=== PATIENT | female | born 1965 | race Caucasian/White ===

== ENCOUNTER 2020-05-21 13:36 | Inpatient (IN) | payer MEDICAID ==
[~2020-05-21] VITALS: Ht 167.6 cm; Wt 71.7 kg
--- NOTE | 2020-05-21 13:36 | NUR ---
BIBA TAKEN TO BED 10
[2020-05-21 13:37] VITALS: BP 126/81
--- NOTE | 2020-05-21 13:40 | NUR ---
55 Y/O FEMALE BIBA FROM [facility] FOR RIGHT PLEURAL EFFUSION. PT TRACH TO VENT WITH ALL VITALS STABLE. PATIENT BROUGHT IN FOR ADMISSION TO HOSPITAL. GCS OF 6 BASELINE. MEDHX: CEREBRAL PALSY, SEIZURE, DM, ANEMIA
[2020-05-21 14:17] VITALS: BP 140/78
--- NOTE | 2020-05-21 14:21 | NUR ---
LAB AT BEDSIDE
--- NOTE | 2020-05-21 14:30 | NUR ---
RAD AT BEDSIDE
[2020-05-21 14:45] LABS: BASOPHILS % (AUTO) 0.5 % (0.0-2.0); EOSINOPHILS # (AUTO) 0.3 K/uL (0-0.4); EOSINOPHILS % (AUTO) 3.8 % (0.0-4.0); HEMATOCRIT 38.5 % (36-48); HEMOGLOBIN 12.8 g/dL (12.0-16.0); LYMPHOCYTES # (AUTO) 1.7 K/uL (2.5-16.5); LYMPHOCYTES % (AUTO) 21.2 % (20.5-51.1); MEAN CORPUSCULAR HEMOGLOBIN 32 pg (27-31); MEAN CORPUSCULAR HGB CONC 33 g/dL (33-37); MEAN CORPUSCULAR VOLUME 95.3 fL (80-94); MONOCYTES # (AUTO) 0.7 K/uL (0.8-1.0); MONOCYTES % (AUTO) 8.7 % (1.7-9.3); NEUTROPHILS # (AUTO) 5.3 K/uL (1.8-7.7); NEUTROPHILS % (AUTO) 65.8 % (42.2-75.2); PLATELET COUNT (AUTO) 198 K/uL (140-450); RED BLOOD CELL COUNT(AUTO) 4.04 MIL/uL (4.20-5.40); RED CELL DISTRIBUTION WIDTH 14.8 % (11.6-13.7)
[2020-05-21 14:56] LABS: ALBUMIN 2.9 g/dL (3.4-5.0); CARBON DIOXIDE 32.6 mmol/L (21-32); CREATININE 0.4 mg/dL (0.6-1.3); POTASSIUM 3.6 mmol/L (3.5-5.1); TOTAL BILIRUBIN 0.3 mg/dL (0.0-1.0)
[2020-05-21] MEDS ORDERED: PHEN100C3 GT (14:59)
[2020-05-21] MEDS ORDERED: FERR75LI22 GT (14:59)
[2020-05-21] MEDS ORDERED: ATI.5 GT (14:59)
[2020-05-21] MEDS ORDERED: ESOM20EC GT (14:59)
[2020-05-21] MEDS ORDERED: ACET-8386 GT (14:59)
[2020-05-21] MEDS ORDERED: BISA-218 RC (14:59)
[2020-05-21] MEDS ORDERED: PRON INH (14:59)
[2020-05-21] MEDS ORDERED: ASCO500T95 GT (14:59)
[2020-05-21] MEDS ORDERED: POTA10TE30 GT (14:59)
[2020-05-21] MEDS ORDERED: GLYC15SO12 OP (14:59)
[2020-05-21] MEDS ORDERED: NA P133E RC (14:59)
[2020-05-21] MEDS ORDERED: INSU100S22 SUBQ (14:59)
[2020-05-21] MEDS ORDERED: CHLO473S62 MM (14:59)
[2020-05-21] MEDS ORDERED: MAGN400S60 GT (14:59)
[2020-05-21] MEDS ORDERED: SAW/1TAB GT (14:59)
[2020-05-21] MEDS ORDERED: FURO-570 GT (14:59)
[2020-05-21] MEDS ORDERED: MULT-2253 GT (14:59)
[2020-05-21 15:05] LABS: PROTHROMBIN TIME 10.2 secs (10.8-13.4)
[2020-05-21] MEDS ORDERED: LORazepam 2 MG/ML VIAL IM/IVP PRN (15:35)
[2020-05-21] MEDS ORDERED: ACETAMINOPHEN 325 MG TAB PO PRN (15:35)
[2020-05-21] MEDS ORDERED: ZOLPIDEM 5 MG TAB PO PRN (15:35)
[2020-05-21] MEDS ORDERED: MORPHINE SULFATE 2 MG/ML SYR IVP PRN (15:35)
[2020-05-21] MEDS ORDERED: DOCUSATE SODIUM 100 MG GELCAP PO PRN (15:35)
[2020-05-21] MEDS ORDERED: ONDANSETRON 4 MG/2 ML VIAL IM/IVP PRN (15:35)
[2020-05-21] MEDS ORDERED: HYDROcodone/APAP 5/325 MG 1 TAB TAB PO PRN (15:35)
[2020-05-21] MEDS ORDERED: POTASSIUM CHLORIDE 10 MEQ TABER PO PRN (15:40)
[2020-05-21] MEDS ORDERED: HYDROcodone/APAP 5/325 MG 1 TAB TAB GT PRN (15:40)
[2020-05-21] MEDS ORDERED: LORazepam 0.5 MG TAB GT PRN (15:40)
[2020-05-21] MEDS ORDERED: ALBUTEROL 0.083% 2.5 MG/3 ML NEBU INH PRN (15:40)
[2020-05-21] MEDS ORDERED: SODIUM PHOSPHATE 118 ML ENEM RC PRN (15:40)
[2020-05-21] MEDS ORDERED: bisacodyL 10 MG SUPP RC PRN (15:40)
[2020-05-21] MEDS ORDERED: MAGNESIUM HYDROXIDE 2400 MG/30 ML UDC GT PRN (15:40)
[2020-05-21] MEDS ORDERED: MAG SULF 2000 MG/WATER PREMIX 50 ML IV PRN (15:40)
--- NOTE | 2020-05-21 15:51 | NUR ---
PT CHANGED INTO CLEAN DIAPER, SKIN INTACT. POSITIONED FOR COMFORT AND TRACH SUCTIONED. BED LOCKED AND IN LOWEST POSITION. SIDE RAILS X2. HARDWOOD FLOOR FINISHER/PULSE OX IN PLACE.
--- NOTE | 2020-05-21 16:08 | NUR ---
REPORT GIVEN TO MARY FLORES VIA PHONE.
--- NOTE | 2020-05-21 16:20 | NUR ---
CALLED RT TO HELP TRANSPORT PT TO BED 127B, STATES SHE IS ON THE WAY
[2020-05-21 16:30] VITALS: BP 114/50
--- NOTE | 2020-05-21 16:30 | NUR ---
ADMITTED PT FROM ER WITH CC OF RIGHT LUNG PLEURAL EFFUSION. ON TRACH TO VENT WITH SETTING FF: TV 450, RATE 14, 30% FIO2. OBTAINED 98% O2 SAT. RHONCHI LUNG SOUND NOTED. NO SOB. PT ON GT FEEDING JEVITY 1.2 AT 60 ML/HR. NO RESIDUAL. SKIN INTACT. AFEBRILE. PIV G24 ON LEFT HAND INTACT. PT HAS NS IVF TO RUN AT 60 ML/HR. RIGHT ARM STIFF NOTED. PALPABLE PERIPHERAL PULSES TO DISTAL EXTREMITIES. NO CYANOSIS NOTED. PT OPENS EYES TO PAIN STIMULI. PT PLACED ON SEIZURE PRECAUTION. WILL CONTINUE TO MONITOR.
[2020-05-21 16:36] LABS: MAGNESIUM 2.1 mg/dL (1.8-2.4); PHOSPHORUS 3.2 mg/dL (2.5-4.9); THYROID STIMULATING HORMONE 1.53 uIU/mL (0.34-3.74)
--- NOTE | 2020-05-21 16:39 | NUR ---
Patient will be admitted to care of DR. JOHNSON. Admited to TELE. Will go to room 127A. Belongings list completed. Report to MARY FLORES.
[2020-05-21] MEDS: NACL 0.9% 1,000 ML IV SCH (16:45)
[2020-05-21] MEDS ORDERED: HYPROMELLOSE OP SCH (18:00)
[2020-05-21] MEDS ORDERED: GLYCERIN OP SCH (18:00)
[2020-05-21] MEDS ORDERED: PEG OP SCH (18:00)
--- NOTE | 2020-05-21 18:00 | NUR ---
PT IS RESTING, NO S/S OF DISCOMFORT. RENDERED PM CARE. TRACH SUCTIONING DONE. OBTAINED THICK SECRETIONS. NO S/S OF RESPIRATORY DISTRESS. TUBE FEEDING STARTED. PT TOLERATING WELL. NO ABDOMINAL DISTENTION NOTED. MRSA SCREEN SPECIMEN SENT. WILL ENDORSE NEXT SHIFT TO OBTAIN UA SPECIMEN. PT IS STABLE AT THIS TIME.
--- NOTE | 2020-05-21 19:15 | NUR ---
ENDORSED PT TO SHAREPOINT TRAINER RN FOR THE CONTINUITY OF CARE. POC REVIEWED AND DISCUSSED. PT IS STABLE . NO CHANGE OF CONDITION.
--- NOTE | 2020-05-21 19:50 | NUR ---
RECEIVED ENDORSEMENT FROM DAYSHIFT NURSE AT BEDSIDE FOR CONTINUITY OF CARE, PT IN STABLE CONDITION. PT IS IN BED P HOB UP 45% SHE IS AOX1 IS A TRACH TO VENT FI02 AT 30% RR AT 16 RESPIRATIONS EVEN AND UNLABORED. PT WITHDRAWS FROM LIGHT PAIN. HER SKIN IS INTACT, SHE HAS A 24G ON LEFT HAND RUNNING NORMAL SALINE AT 60 MLS/HR. SHE HAS A FEEDING TUBE RUNNING JEVITY 1.2 AT 60MLS/HR NO RESIDUAL NOTED. V/S FOLLOWS: T 97.2 P 79 R 16 BP 101/53 02 98% ON TRACH TO VENT SETTINGS. ALL FALLS PRECAUTIONS IN PLACE.
[2020-05-21 19:54] VITALS: BP 101/53
[2020-05-21 20:00] VITALS: BP 101/53
[2020-05-21] MEDS ORDERED: CRUSHER, PILL MC ONE (20:50)
[2020-05-21] MEDS ORDERED: LYC GT SCH (21:00)
[2020-05-21] MEDS ORDERED: CHLORHEXIDINE GLUCONATE MM SCH (21:00)
[2020-05-21] MEDS: INSULIN LANTUS 100 UNITS/ML 10 ML VIAL SUBQ SCH (21:00)
[2020-05-21] MEDS ORDERED: PYG GT SCH (21:00)
[2020-05-21] MEDS ORDERED: SOD SEL GT SCH (21:00)
[2020-05-21] MEDS ORDERED: BETA GT SCH (21:00)
[2020-05-21] MEDS ORDERED: VIT E GT SCH (21:00)
[2020-05-21] MEDS ORDERED: PHENYTOIN 100 MG CAPER PO SCH (21:00)
[2020-05-21] MEDS ORDERED: NON-FORMULARY ITEM (Insulin Glargine,Hum.rec.anlog (Lantus Solostar) 15 UNIT) SUBQ SCH (21:00)
[2020-05-21] MEDS ORDERED: SAW GT SCH (21:00)
--- NOTE | 2020-05-21 21:30 | NUR ---
PT GIVEN ORDERED DILANTIN VIA GT AND ORDERED HEPARIN SQ PLATELETS ARE 198. FINGERSTICK TAKEN AND IS 137. SPOKE WITH MD BY PHONE OK TO ORDER FINGERSTICKS, DM SLIDING SCALE AND STRAIGHT CATH DUE TO PT HAS PENDING UA. MD SAID OK TO HOLD 15 UNITS LANTUS DUE TO FINGERSTICK ONLY BEING 137. PT CONTINUES RUNNING JEVITY 1.2. EDUCATION REGARDING MEDICATION PROVIDED AT BEDSIDE, PT UNABLE TO VERBALIZE UNDERSTANDING. ALL ORDERED PRECAUTIONS IN PLACE.
--- NOTE | 2020-05-21 22:15 | NUR ---
PT TURNED, CHANGED AND REPOSITIONED IN BED. ALL ORDERED PRECAUTIONS IN PLACE.
[2020-05-22] VITALS (8 sets, daily range): BP systolic 57–157; BP diastolic 38–79
--- NOTE | 2020-05-22 | NUR ---
PT LYING IN BED EYES CLOSED, SHE IS RESPONSIVE TO LIGHT PAIN. PT IS TRACH TO VENT 02 99% WITH CURRENT VENT SETTINGS. JEVITY 1.2 CONTINUES AT 60MLS/HR. PT ASLO HAS 24 G IN LEFT HAND WHICH CONTINUES TO RUN NORMAL SALINE AT 60MLS/HR. OTHER V/S FOLLOWS: T 97.8 P 79 R 14 B/P 101/48 02 99% PT WAS TURNED, CHANGED AND REPOSITIONED IN BED ALL ORDERED PRECAUTIONS IN PLACE.
[2020-05-22] MEDS ORDERED: DEXTROSE 50% 50 ML SYR IVP PRN (01:55)
--- NOTE | 2020-05-22 02:00 | NUR ---
PT IN BED HOB UP 45% NORMAL SALINE RUNNING AT 60MLS/HR. JEVITY RUNNING AT 60MLS/HR. NO SEIZURE ACTIVITY NOTED THIS SHIFT. PT CONTINUES ON TRACH TO VENT WITH RESPIRATIONS EVEN AND UNLABORED 02 98-100% ON ALL ORDERED PRECAUTIONS IN PLACE. PT WAS TURNED CHANGED AND REPOSITIONED IN BED.
--- NOTE | 2020-05-22 04:35 | NUR ---
PT WAS TURNED, CHANGED AND REPOSITIONED IN BED. URINE FOR UA COLLECTED AND SENT TO LAB. ORAL CARE PROVIDED.
[2020-05-22 05:40] LABS: APPEARANCE,URINE CLEAR (CLEAR); BILIRUBIN,URINE NEGATIVE (NEGATIVE); BLOOD, URINE NEGATIVE (NEGATIVE); COLOR,URINE YELLOW (YELLOW); LEUKOCYTE ESTERASE ,URINE NEGATIVE (NEGATIVE); NITRITE, URINE NEGATIVE (NEGATIVE); UGLUCOSE NEGATIVE (NEGATIVE)
[2020-05-22 05:54] LABS: ANION GAP 7.8 (8-16); CARBON DIOXIDE 34.1 mmol/L (21-32); CREATININE 0.4 mg/dL (0.6-1.3); MAGNESIUM 2.1 mg/dL (1.8-2.4); PHOSPHORUS 3.9 mg/dL (2.5-4.9); POTASSIUM 3.9 mmol/L (3.5-5.1)
--- NOTE | 2020-05-22 06:00 | NUR ---
FINGERSTICK IS 171, 2 UNITS OF HUMALOG COVERAGE GIVEN. ORAL CARE PROVIDED. PT GIVEN ORDERED PREVACID FOR GERD. ALL ORDERED PRECAUTIONS IN PLACE.
[2020-05-22] MEDS: INSULIN LISPRO SLIDING SCALE 100 UNITS/ML VIAL SUBQ PRN ×2 (06:43→20:53)
[2020-05-22] MEDS: BLOOD GLUCOSE MONITORING 1 DEV DEV FS SCH ×4 (06:51→20:58)
[2020-05-22] MEDS: LANSOPRAZOLE 30 MG CAPDR GT SCH (06:51)
[2020-05-22 06:59] LABS: BASOPHILS # (AUTO) 0.1 K/uL (0.00-0.22); BASOPHILS % (AUTO) 1.1 % (0.0-2.0); MONOCYTES # (AUTO) 0.7 K/uL (0.8-1.0)
[2020-05-22 07:00] LABS: EOSINOPHILS # (AUTO) 0.3 K/uL (0-0.4); EOSINOPHILS % (AUTO) 4.6 % (0.0-4.0); HEMATOCRIT 37.3 % (36-48); HEMOGLOBIN 12.8 g/dL (12.0-16.0); LYMPHOCYTES # (AUTO) 1.4 K/uL (2.5-16.5); LYMPHOCYTES % (AUTO) 20.1 % (20.5-51.1); MEAN CORPUSCULAR HEMOGLOBIN 33 pg (27-31); MEAN CORPUSCULAR HGB CONC 34 g/dL (33-37); MEAN CORPUSCULAR VOLUME 96.2 fL (80-94); MONOCYTES % (AUTO) 9.4 % (1.7-9.3); NEUTROPHILS # (AUTO) 4.6 K/uL (1.8-7.7); NEUTROPHILS % (AUTO) 64.8 % (42.2-75.2); PLATELET COUNT (AUTO) 287 K/uL (140-450); RED BLOOD CELL COUNT(AUTO) 3.88 MIL/uL (4.20-5.40); WHITE BLOOD COUNT (AUTO) 7.1 K/uL (4.8-10.8)
[2020-05-22 07:30] LABS: CHOL/HDL RATIO 4.3 (1-4.5)
--- NOTE | 2020-05-22 07:35 | NUR ---
RECEIVED REPORT FROM CELL TENDER RN FOR CONTINUITY OF CARE, PATIENT RESTING IN BED, TRACH TO VENT, FIO2 30%. O2 SAT 99%. HR 76. G TUBE FEEDING WITH JEVITY@ 60ML/HR, WATER FLUSH 100 Q4H. IV TO LEFT HAND 24G INFUSING NS @ 60ML/HR. INCONTINENT TO BOWEL/BLADDER. HOB ELEVATED>35. SAFETY MEASURES IN PLACE, WILL CONTINUE TO MONITOR.
[2020-05-22] MEDS ORDERED: POTASSIUM CHLORIDE 10 MEQ TABER PO SCH (09:00)
[2020-05-22] MEDS ORDERED: FUROSEMIDE 40 MG TAB GT SCH (09:00)
[2020-05-22] MEDS: INSULIN LANTUS 100 UNITS/ML 10 ML VIAL SUBQ SCH ×2 (09:00→21:00)
[2020-05-22] MEDS ORDERED: ESOMEPRAZOLE MAGNESIUM 20 MG GT SCH (09:00)
[2020-05-22] MEDS ORDERED: ASCORBIC ACID 500 MG TAB GT SCH (09:00)
[2020-05-22] MEDS ORDERED: NON-FORMULARY ITEM (Multivitamin (Multi-Vitamin Daily) 1 TAB) GT SCH (09:00)
[2020-05-22] MEDS ORDERED: FERROUS SULFATE 300 MG GT SCH (09:00)
[2020-05-22] MEDS: MULTIVITAMIN 5 ML ORASYR GT SCH (09:00)
--- NOTE | 2020-05-22 09:04 | NUR ---
PATIENT HAS BEEN SCREENED AND CATEGORIZED HIGH NUTRITION RISK. PATIENT WILL BE SEEN WITHIN 1-2 DAYS OF ADMISSION. 05/22/20-05/23/[address]
[2020-05-22 10:06] LABS: T4 (THYROXINE) 6.6 ug/dL (4.5-12.0)
[2020-05-22] MEDS ORDERED: ASCORBIC ACID 500 MG/5 ML ORASYR GT SCH (10:15)
[2020-05-22] MEDS ORDERED: FUROSEMIDE 40 MG/5 ML ORAL SOL UDC GT SCH (10:15)
[2020-05-22] MEDS ORDERED: POTASSIUM CHLORIDE 20% 40 MEQ/15 ML UDC GT SCH (10:30)
[2020-05-22] MEDS: FERROUS SULFATE 300 MG/5 ML UDC GT SCH (10:48)
[2020-05-22] MEDS: LACTULOSE 20 GM/30 ML UDC PO SCH (10:50)
[2020-05-22] MEDS: PHENYTOIN 100 MG/4 ML UDC GT SCH (10:50)
--- NOTE | 2020-05-22 11:16 | NUR ---
DC [age] YRS OLD FEMALE PATIENT WAS ADMITTED FROM [facility] WITH A DX OF CHF, RT PLEURAL EFFUSION. PT HAS A HX OF CXR SHOWED RIGHT LOWER LOBE AND RIGHT MIDDLE LOBE ATELECTASIS . PT IS TRACH TO VENT, FIO2 30% SATING 98% . RAPID COVID TEST NEGATIVE CONTINUED ALL HOME MEDS. CONSULTED WITH PULMO DR MARINELLI. DC PLAN TO GO BACK TO [facility] WHEN STABLE CM TO FOLLOW Addendum: 05/25/20 at 1115 by Mansi Ramirez CM DC SUPERVISOR MAPPING: PATIENT WILL DC TODAY BACK TO [facility]. FAXED TO [facility]. PER ERIC AT [facility] PATIENT WILL GO TO ROOM 121-B UNDER DR. JOHNSON. Addendum: 05/25/20 at 1120 by Mansi Ramirez CM DC SUPERVISOR MAPPING: ARRANGED TRANSPORTATION WITH [facility] [phone]. INSPECTOR MACHINE CUT GLASS TIME FOR PATIENT IS 1:00 PM Addendum: 05/25/20 at 1123 by Mansi Ramirez CM JC PELAEZ: CATHIE RN Addendum: 05/25/20 at 1126 by Mansi Ramirez CM JC PELAEZ: [address] [address] [address] DR[address] JOHNSON
--- NOTE | 2020-05-22 11:43 | NUR ---
SOCIAL WORK NOTE: Patient's Orientation Unable To Assess Information Provided By EVELINA ELIZALDE - SISTER Comments SW WAS UNABLE TO MEET PATIENT AT BEDSIDE. SW COMPLETED ASSESSMENT WITH PATIENT'S SISTER. Gang Vibrator Operator, Realtionship and Phone Number EVELINA ELIZALDE SISTER [phone] MARIO BRITO SISTER [phone] Healthcare Power of Service Station Helper No Does Patient Have a POLST No Identifying Problems No Social Work Triggers Is A Social Work Consult Needed No Mandate Report Filed No Explanation Of Identifying Problems PATIENT IS A 55-YEAR-OLD FEMLAE ADMITTED FOR CHF AND RIGHT PLEURAL EFFUSION. PATIENT HAS PMHX OF CHF, CEREBRAL PALSY, DM-II, CHRONIC RESPIRATORY FAILURE W/ TRACH DEPENDENCE. Admitted From [facility] Home [facility] - [phone] Pre-Admission Level Of Functioning Status Total Care Level Of Functioning Comment SISTER STATED THAT PATIENT REQUIRES TOTAL ASSISTANCE WITH ADLS. Prior Resources/Services Used In Last 12 Months SNF Care Home Care Prior Resources/Service Comments PER SISTER, PATIENT IS A INTERMEDIATE PATIENT AND ON A BED HOLD. Dialysis Comments N/A Patient Had Caregiver No Home Support No Caregiver Issues Financial Issues No Known Financial Issue Referral To The Financial Counselor Needed No Factors/Needs No D/C Needs Identified Pt/Rep Participated In Discharge Plan Yes Patient/Family Agress With Discharge Plan Yes Discharge Plan Comments TENTATIVE DISCHARGE PLAN IS FOR PATIENT [place] [facility] [place] Status Initiated
[2020-05-22] MEDS: NACL 0.9% 1,000 ML IV SCH (12:24)
[2020-05-22] MEDS: POLYVINYL ALCOHOL 1.4% OP 15 ML SOL OP SCH ×2 (12:25→18:29)
--- NOTE | 2020-05-22 14:22 | NUR ---
05/22/20 RD INITIAL ASSESSMENT COMPLETED PLEASE REFER TO NUTRITION ASSESSMENT UNDER CARE ACTIVITY FOR ESTIMATED NUTRITIONAL NEEDS. 1. RECOMMEND JEVITY 1.2 @ 60 ML/HR. -THIS WILL PROVIDE 1440 ML VOLUME, 1728 KCAL AND 86 GM OF PROTEIN MEETING ADEQUATE NUTRIENT NEEDS 2. CONTINUE FREE WATER FLUSH OF 100 ML Q4H 3. HOLD FEEDINGS 2 HR BEFORE ADMINISTERING DILANTIN G-TUBE MEDICATION AND [address] TO FOLLOW-UP 2-3 DAYS, HIGH RISK ARACELI ROSS RD
--- NOTE | 2020-05-22 15:46 | NUR ---
DR. JOHNSON APPROVED INCREASING TUBE FEEDING TO 60 ML/HR OF JEVITY 1.2 ON THE DIET ORDER.
--- NOTE | 2020-05-22 19:13 | NUR ---
ENDORSED PATIENT TO CLINIC RECEPTIONIST RN FOR CONTINUITY OF CARE. PATIENT IN STABLE CONDITION.
--- NOTE | 2020-05-22 19:25 | NUR ---
PT RECEIVED ON PRVC 450 +5, f 14 30% W/ PORTEX 7 TRACH. ALARMS ON AND AUDIBLE, AMBU AT BEDSIDE AND VENT PLUGGED INTO RED OUTLET
--- NOTE | 2020-05-22 20:00 | NUR ---
RECEIVED REPORT FORM AM DAYSHIFT NURSE AT BEDSIDE FOR CONTINUITY OF CARE, PT IN STABLE CONDITION. PT IS IN BED AOX1 WITH HEAD OF BED UP. PT WITHDRAWS TO LIGHT PAIN. SHE IS A TRACH TO VENT WITH VENT SETTING FOLLOWS: 30% FI02 VT 450 R 14 02 96%. PT HAS A LEFT HAND 24 G RUNNING NORMAL SALINE AT 60MLS/HR. PT ALSO HAS A GT TUBE INTACT NO RESIDUAL NOTED. PT ON G TUBE FEEDING OF JEVITY 1.2 AT 60MLS/HR. V/S FOLLOWS: T 97 P 82 R 18 B/P 116/75 02 96% WITH ALL CURRENT VENT SETTINGS. ALL ORDERED PRECAUTIONS IN PLACE.
--- NOTE | 2020-05-22 20:48 | NUR ---
PT WAS TRANSPORTED FROM RM 127 TO RM 108 ON VENT. PT TOLERATED TRANSPORT WELL VENT PLUGGED INTO RED OUTLET AND AMBU AT BEDSIDE.
--- NOTE | 2020-05-22 21:00 | NUR ---
PT MOVED FROM 127 TO 108A. PT FINGERSTICK IS 165. PT GIVEN 2 UNITS OF HUMALOG COVERAGE. LANTUS 15 UNITS HELD DUE TO PT BLOOD SUGAR FLUCTUATING. PT GIVEN ORDERED AND SCHEDULED HEPARIN SQ PLATELETS 287. PT WAS TURNED ,CHANGED AND REPOSITIONED IN BED ALL ORDERED PRECAUTIONS IN PLACE.
[2020-05-23] VITALS: BP 113/64
--- NOTE | 2020-05-23 | NUR ---
PT TURNED, CHANGED AND REPOSITIONED IN BED. V/S FOLLOWS: T 97 P 99 R 14 B/P 113/64 02 97% WITH ALL CURRENT VENT SETTINGS.
[2020-05-23] MEDS: POLYVINYL ALCOHOL 1.4% OP 15 ML SOL OP SCH ×4 (00:16→18:28)
[2020-05-23] MEDS: NACL 0.9% 1,000 ML IV SCH ×2 (01:35→17:35)
--- NOTE | 2020-05-23 01:43 | NUR ---
ROUNDS DONE, PT IN BED NO S/S OF PAIN OR DISTRESS NOTED. ALL ORDERED PRECAUTIONS IN PLACE.
[2020-05-23 04:00] VITALS: BP 124/75
--- NOTE | 2020-05-23 04:00 | NUR ---
PT WAS TURNED, CHANGED AND REPOSITIONED IN BED V/S FOLLOWS: T 98.3 P 75 R 16 B/P 124/75 02 98% ON ALL CURRENT VENT SETTINGS. ALL ORDERED PRECAUTIONS IN PLACE.
--- NOTE | 2020-05-23 05:38 | NUR ---
PT REMAINS ON SETTINGS RECEIVED PRVC 450 +5, f14 30%. TRACH CARE HAS BEEN PERFORMED AND PT TOLERATED WELL. VENT PLUGGED INTO RED OUTLET W/ AMBU AT BEDSIDE.
[2020-05-23] MEDS: LANSOPRAZOLE 30 MG CAPDR GT SCH (06:22)
--- NOTE | 2020-05-23 06:30 | NUR ---
PT FINGERSTICK IS IS 154, 2 UNITS OF HUMALOG COVERAGE GIVEN.
[2020-05-23] MEDS: INSULIN LISPRO SLIDING SCALE 100 UNITS/ML VIAL SUBQ PRN ×3 (06:31→22:15)
[2020-05-23] MEDS: BLOOD GLUCOSE MONITORING 1 DEV DEV FS SCH ×4 (06:36→21:00)
[2020-05-23 06:44] LABS: ANION GAP 9.8 (8-16); CREATININE 0.4 mg/dL (0.6-1.3); POTASSIUM 3.8 mmol/L (3.5-5.1)
[2020-05-23 06:55] LABS: PHOSPHORUS 4.2 mg/dL (2.5-4.9)
[2020-05-23 07:02] LABS: BASOPHILS % (AUTO) 0.7 % (0.0-2.0); EOSINOPHILS # (AUTO) 0.2 K/uL (0-0.4); EOSINOPHILS % (AUTO) 3.7 % (0.0-4.0); HEMOGLOBIN 12.6 g/dL (12.0-16.0); LYMPHOCYTES # (AUTO) 1.3 K/uL (2.5-16.5); LYMPHOCYTES % (AUTO) 22.7 % (20.5-51.1); MEAN CORPUSCULAR HEMOGLOBIN 32 pg (27-31); MEAN CORPUSCULAR HGB CONC 33 g/dL (33-37); MEAN CORPUSCULAR VOLUME 95.5 fL (80-94); MONOCYTES # (AUTO) 0.4 K/uL (0.8-1.0); MONOCYTES % (AUTO) 7.4 % (1.7-9.3); NEUTROPHILS # (AUTO) 3.7 K/uL (1.8-7.7); NEUTROPHILS % (AUTO) 65.5 % (42.2-75.2); PLATELET COUNT (AUTO) 190 K/uL (140-450); RED BLOOD CELL COUNT(AUTO) 3.98 MIL/uL (4.20-5.40); WHITE BLOOD COUNT (AUTO) 5.6 K/uL (4.8-10.8)
--- NOTE | 2020-05-23 07:30 | NUR ---
RECEIVED REPORT FROM NIGHT NURSE PATIENT IS TRACH [facility]ENT AT [facility] FIO2 30 VT 450 PEEP 5 RESP 14 , INCONTINENT, BEDBOUND, WITH FOOT DROP, SKIN INTACT, ON TUBE FEEDING JEVITY 1.2 AT 60 ML WATERFLUSH 100 Q4H, IV INTACT ON LEFT HAND, ASPIRATION PRECAUTION AND SEIZURE PRECAUTION, CT CHEST, CHEST XRAY AND CHEST US DONE, ECHOCARDIOGRAM DONE. SAFETY MEASURES IN PLACE AND CALL LIGHT WITHIN REACH. WILL CONTINUE TO MONITOR.
[2020-05-23 08:00] VITALS: BP 116/65
[2020-05-23] MEDS: MULTIVITAMIN 5 ML ORASYR GT SCH (09:00)
[2020-05-23] MEDS: INSULIN LANTUS 100 UNITS/ML 10 ML VIAL SUBQ SCH ×2 (09:00→21:00)
[2020-05-23] MEDS: FERROUS SULFATE 300 MG/5 ML UDC GT SCH (09:04)
[2020-05-23] MEDS: LACTULOSE 20 GM/30 ML UDC PO SCH (09:05)
[2020-05-23] MEDS: ASCORBIC ACID 500 MG/5 ML ORASYR GT SCH (09:05)
[2020-05-23] MEDS: POTASSIUM CHLORIDE 20% 40 MEQ/15 ML UDC GT SCH (09:05)
[2020-05-23] MEDS: LEVOFLOXACIN 500 MG/D5W PREMIX 100 ML IV SCH (09:06)
[2020-05-23] MEDS: FUROSEMIDE 40 MG/5 ML ORAL SOL UDC GT SCH (09:06)
--- NOTE | 2020-05-23 09:20 | NUR ---
SCHEDULED MEDICATION GIVEN RESIDUAL VOLUME 20 ML CHECK VITAL SIGNS PRIOR TO MEDICATION BP 116/65 MS 83. PT TOLERATED WELL AND PT IS STABLE.
[2020-05-23] MEDS: PHENYTOIN 100 MG/4 ML UDC GT SCH ×2 (10:28→22:00)
--- NOTE | 2020-05-23 10:31 | NUR ---
MEDICATION DUE GIVEN PT IS STABLE NAD NO DISTRESS NOTED.
--- NOTE | 2020-05-23 11:30 | NUR ---
BLOOD SUGAR MONITORING 171 MG/DL INSULIN COVERAGE GIVEN.
[2020-05-23 12:00] VITALS: BP 131/67
[2020-05-23] MEDS ORDERED: ACETYLCYSTEINE 10% (100 MG/ML) 100 MG/ML VIAL INH PRN (12:15)
--- NOTE | 2020-05-23 12:30 | NUR ---
MEDICATION GIVEN PT IS STABLE.
[2020-05-23 16:00] VITALS: BP 141/75
--- NOTE | 2020-05-23 16:30 | NUR ---
BLOOD SUGAR 114 MG/DL NO INSULIN COVERAGE
--- NOTE | 2020-05-23 18:30 | NUR ---
TRACH TO VENT SETTING OF FI02 28 VT 450 PEEP 5 RESP 14.
--- NOTE | 2020-05-23 18:30 | NUR ---
SCHEDULED MEDICATION GIVEN.
--- NOTE | 2020-05-23 19:34 | NUR ---
ENDORSED TO NIGHT NURSE FOR CONTINUITY OF CARE.
--- NOTE | 2020-05-23 19:45 | NUR ---
RECEIVED REPORT AT BEDSIDE FROM RN DAYSHIFT NURSE FOR CONTINUITY OF CARE, PT IN STABLE CONDITION.
[2020-05-23 20:00] VITALS: BP 120/67
--- NOTE | 2020-05-23 20:00 | NUR ---
PT IN BED AOX1 SHE IS A TRACH TO VENT FI02 NOW AT 28% PEEP 5 TV AT 450 AND RR 14. PT RESPIRATIONS EVEN AND UNLABORED. SHE WITHDRAWS TO LIGHT PAIN. SHE HAS RIGHT HAND 22G RUNNING NORMAL SALINE AT 60 MLS/HR. PT ALSO HAS A G TUBE INTACT AND RUNNING JEVITY AT 60MLS/HR. PT HAS 50MLS OF RESIDUAL .ALL ORDERED PRECAUTIONS IN PLACE AND V/S FOLLOWS: T 97.0 P 80 R 16 B/P 120/67 02 98% ON ALL CURRENT VENT SETTINGS.
--- NOTE | 2020-05-23 21:30 | NUR ---
PT GIVEN DILANTIN VIA G TUBE FOR SEIZURES AND HEPARIN SQ FOR DVT PREVENTION. EDUCATION REGARDING MEDICATION AT BEDSIDE, PT UNABLE TO COMPREHEND. FINGERSTICK IS 180, PT GIVEN 2 UNITS HUMALOG COVERAGE PER S/S. LANTUS HELD DUE TO PT BLOOD SUGAR BEING CONTROLLED. PT WAS GIVEN ORAL CARE, SUCTIONED TURNED, CHANGED AND REPOSITIONED IN BED. ALL ORDERED PRECAUTIONS IN PLACE.
[2020-05-24] VITALS: BP 115/49
--- NOTE | 2020-05-24 | NUR ---
PT GIVEN ORDERED ARTIFICIAL TEARS IN BOTH EYES. PT WAS SUCTIONED, ORAL CARE PROVIDED AND PT WAS TURNED, CHANGED AND REPOSITIONED IN BED. ALL ORDERED PRECAUTIONS IN PLACE. PT HAS NO S/S OF PAIN OR DISTRESS NOTED.
--- NOTE | 2020-05-24 00:30 | NUR ---
PT ASLEEP NO S/S OF PAIN OR DISTRESS NOTED V/S FOLLOWS: T 97.2 P 71 R 15 B/P 115/49 02 97% ON ROOM AIR. ALL UNIVERSAL FALLS PRECAUTIONS IN PLACE.
[2020-05-24 04:00] VITALS: BP 115/51
--- NOTE | 2020-05-24 04:00 | NUR ---
PT TURNED, CHANGED AND REPOSITIONED IN BED. NEW JEVITY AND NORMAL SALINE HUNG AND RUNNING ORDERED. ORAL CARE PROVIDED. ALL ORDERED PRECAUTIONS IN PLACE,.
[2020-05-24] MEDS: LANSOPRAZOLE 30 MG CAPDR GT SCH (06:18)
[2020-05-24] MEDS: POLYVINYL ALCOHOL 1.4% OP 15 ML SOL OP SCH ×4 (06:18→18:17)
[2020-05-24] MEDS: BLOOD GLUCOSE MONITORING 1 DEV DEV FS SCH ×4 (06:24→20:09)
--- NOTE | 2020-05-24 06:30 | NUR ---
PT GIVEN PREVACID VIA GT PT HAS RESIDUAL OF 50MLS. FEEDING STOPPED AT THIS TIME. PT FINGERSTICK IS 122 NO HUMALOG COVERAGE NEEDED. ALL ORDERED PRECAUTIONS IN PLACE.
[2020-05-24 06:47] LABS: BASOPHILS % (AUTO) 0.6 % (0.0-2.0); EOSINOPHILS # (AUTO) 0.2 K/uL (0-0.4); EOSINOPHILS % (AUTO) 2.7 % (0.0-4.0); HEMATOCRIT 36.3 % (36-48); LYMPHOCYTES # (AUTO) 1.3 K/uL (2.5-16.5); MEAN CORPUSCULAR HEMOGLOBIN 32 pg (27-31); MEAN CORPUSCULAR HGB CONC 33 g/dL (33-37); MEAN CORPUSCULAR VOLUME 95.6 fL (80-94); MONOCYTES # (AUTO) 0.5 K/uL (0.8-1.0); MONOCYTES % (AUTO) 8.2 % (1.7-9.3); NEUTROPHILS % (AUTO) 66.5 % (42.2-75.2); PLATELET COUNT (AUTO) 185 K/uL (140-450); RED CELL DISTRIBUTION WIDTH 15.1 % (11.6-13.7); WHITE BLOOD COUNT (AUTO) 6.1 K/uL (4.8-10.8)
[2020-05-24 06:48] LABS: ANION GAP 10.9 (8-16); CARBON DIOXIDE 30.7 mmol/L (21-32); CREATININE 0.4 mg/dL (0.6-1.3); POTASSIUM 3.6 mmol/L (3.5-5.1)
[2020-05-24 06:52] LABS: MAGNESIUM 2.1 mg/dL (1.8-2.4); PHOSPHORUS 3.8 mg/dL (2.5-4.9)
--- NOTE | 2020-05-24 07:18 | NUR ---
RECEIVED REPORT FROM GENERAL ASSEMBLER RN FOR CONTINUITY OF CARE. PATIENT ASLEEP. TRACH TO VENT, AC/PRVC MODE, FIO2 28%. IV TO RIGHT WRIST 22G INFUSING NS@ 60ML/HR. G TUBE FEEDING HOLD FOR PHENYTOIN( 2 HOURS PRIOR AND 2 HOURS AFTER). RT AT BEDSIDE CHECKING THE VENT SETTING. INCONTINENT B/B. NO ACUTE DISTRESS NOTED AT THIS TIME, SAFETY MEASURES IN PLACE. WILL CONTINUE TO MONITOR.
[2020-05-24 08:00] VITALS: BP 140/72
[2020-05-24] MEDS: FERROUS SULFATE 300 MG/5 ML UDC GT SCH (08:49)
[2020-05-24] MEDS: ASCORBIC ACID 500 MG/5 ML ORASYR GT SCH (08:49)
[2020-05-24] MEDS: LACTULOSE 20 GM/30 ML UDC PO SCH (08:49)
[2020-05-24] MEDS: PHENYTOIN 100 MG/4 ML UDC GT SCH ×2 (08:50→21:35)
[2020-05-24] MEDS: FUROSEMIDE 40 MG/5 ML ORAL SOL UDC GT SCH (08:50)
[2020-05-24] MEDS: LEVOFLOXACIN 500 MG/D5W PREMIX 100 ML IV SCH (08:51)
[2020-05-24] MEDS: POTASSIUM CHLORIDE 20% 40 MEQ/15 ML UDC GT SCH (08:51)
[2020-05-24] MEDS: INSULIN LANTUS 100 UNITS/ML 10 ML VIAL SUBQ SCH ×2 (09:04→21:00)
[2020-05-24] MEDS ORDERED: MULTIVITAMIN 1 TAB GT SCH (09:30)
[2020-05-24] MEDS ORDERED: MULTIVIT/MIN/CA/FE/FA 1 TAB GT SCH (09:30)
[2020-05-24] MEDS: NACL 0.9% 1,000 ML IV SCH ×2 (10:15→20:49)
[2020-05-24 12:00] VITALS: BP 125/76
--- NOTE | 2020-05-24 13:29 | NUR ---
SPUTUM CULTURE SAMPLE COLLECTED BY RTMARY SENT THE SAMPLE TO THE LAB.
--- NOTE | 2020-05-24 14:59 | NUR ---
05/24/20 RD FOLLOW UP COMPLETED PLEASE REFER TO NUTRITION ASSESSMENT UNDER CARE ACTIVITY FOR ESTIMATED NUTRITIONAL NEEDS. 1. CONTINUE JEVITY 1.2 @ 60 ML/HR. -THIS WILL PROVIDE 1440 ML VOLUME, 1728 KCAL AND 86 GM OF PROTEIN 2. CONTINUE FREE WATER FLUSH OF 100 ML Q4H 3. HOLD FEEDINGS 2 HR BEFORE ADMINISTERING DILANTIN G-TUBE MEDICATION AND [address] TO FOLLOW-UP 2-3 DAYS, HIGH RISK ARACELI ROSS RD
--- NOTE | 2020-05-24 15:22 | NUR ---
ASSISTED REGIONAL SALES CONSULTANT TO TURNED, CLEAN THE PATIENT. PATIENT HAD 1 BM. TRACH SUCTION PERFORMED WITH WHITE THIN SECRETIONS. SAFETY MEASURES IN PLACE, HOB ELEVATED. PATIENT KEPT COMFORTABLE.
[2020-05-24 16:00] VITALS: BP 141/72
--- NOTE | 2020-05-24 19:25 | NUR ---
ENDORSED PATIENT TO CODE ENFORCEMENT SUPERVISOR RN FOR CONTINUITY OF CARE. PATIENT IN STABLE CONDITION.
--- NOTE | 2020-05-24 19:26 | NUR ---
RECEIVED BEDSIDE REPORT FROM DAY RN MARLI. PT AOX0 NONVERBAL ON TRACH TO VENT, FIO2 28, TV 450 RATE 14 PEEP 5. NO S/S RESPIRATORY DISTRESS. FLACC 0. IV SITE R WRIST 22G PATENT INTACT INFUSING IVF ORDERED. GTUBE IN PLACE, INFUSING JEVITY @ 60ML/HR. SAFETY MEASURES IN PLACE. CALL LIGHT WITHIN REACH. WILL CONTINUE TO MONITOR
[2020-05-24 20:00] VITALS: BP 131/73
[2020-05-24] MEDS: INSULIN LISPRO SLIDING SCALE 100 UNITS/ML VIAL SUBQ PRN (20:44)
--- NOTE | 2020-05-24 20:57 | NUR ---
ADMINISTERED SCHEDULED MEDICATIONS, NO DISTRESS NOTED. HOLDING FEEDINGS 2 HOURS BEFORE AND 2 HOURS AFTER DILANTIN G TUBE MEDICATION PER MD ORDER. WILL CONTINUE TO MONITOR
--- NOTE | 2020-05-24 21:35 | NUR ---
NO G TUBE RESIDUAL. ADMINISTERED SCHEDULED DILANTIN. NO DISTRESS NOTED. WILL CONTINUE TO MONITOR
[2020-05-25] VITALS: BP 109/63
[2020-05-25] MEDS: POLYVINYL ALCOHOL 1.4% OP 15 ML SOL OP SCH ×3 (00:01→11:32)
--- NOTE | 2020-05-25 00:10 | NUR ---
CLEAN CHANGED REPOSITIONED PATIENT. SCHEDULED ARTIFICIAL TEARS GIVEN TO BOTH EYES. NO DISTRESS NOTED. ALL ORDERED PRECAUTIONS IN PLACE. WILL CONTINUE TO MONITOR
--- NOTE | 2020-05-25 01:46 | NUR ---
PT RESTING IN BED. RT AT BEDSIDE. SUCTIONED PT, TOLERATED WELL. NO DISTRESS NOTED. WILL CONTINUE TO MONITOR
[2020-05-25 04:00] VITALS: BP 114/59
[2020-05-25] MEDS: LANSOPRAZOLE 30 MG CAPDR GT SCH (05:38)
[2020-05-25] MEDS: BLOOD GLUCOSE MONITORING 1 DEV DEV FS SCH ×2 (06:08→11:32)
[2020-05-25] MEDS: INSULIN LISPRO SLIDING SCALE 100 UNITS/ML VIAL SUBQ PRN (06:17)
--- NOTE | 2020-05-25 06:30 | NUR ---
BLOOD SUGAR 155, GAVE 2 UNITS INSULIN SUBQ PER SLIDING SCALE. NO DISTRESS NOTED. WILL CONTINUE TO MONITOR
[2020-05-25 06:40] LABS: ANION GAP 8.8 (8-16); CARBON DIOXIDE 31.7 mmol/L (21-32); CREATININE 0.4 mg/dL (0.6-1.3); POTASSIUM 3.5 mmol/L (3.5-5.1)
[2020-05-25 06:41] LABS: PHOSPHORUS 3.3 mg/dL (2.5-4.9)
[2020-05-25 06:44] LABS: BASOPHILS % (AUTO) 0.5 % (0.0-2.0); EOSINOPHILS # (AUTO) 0.1 K/uL (0-0.4); EOSINOPHILS % (AUTO) 2.6 % (0.0-4.0); HEMATOCRIT 34.8 % (36-48); HEMOGLOBIN 11.6 g/dL (12.0-16.0); LYMPHOCYTES # (AUTO) 1.4 K/uL (2.5-16.5); MEAN CORPUSCULAR HEMOGLOBIN 32 pg (27-31); MEAN CORPUSCULAR HGB CONC 33 g/dL (33-37); MEAN CORPUSCULAR VOLUME 95.8 fL (80-94); MONOCYTES # (AUTO) 0.5 K/uL (0.8-1.0); MONOCYTES % (AUTO) 9.7 % (1.7-9.3); NEUTROPHILS # (AUTO) 3.2 K/uL (1.8-7.7); NEUTROPHILS % (AUTO) 60.2 % (42.2-75.2); PLATELET COUNT (AUTO) 160 K/uL (140-450); RED BLOOD CELL COUNT(AUTO) 3.63 MIL/uL (4.20-5.40); RED CELL DISTRIBUTION WIDTH 14.8 % (11.6-13.7); WHITE BLOOD COUNT (AUTO) 5.3 K/uL (4.8-10.8)
--- NOTE | 2020-05-25 07:28 | NUR ---
ENDORSED PT TO DAY RN FOR CONTINUITY OF CARE. PT IS IN STABLE CONDITION
--- NOTE | 2020-05-25 07:31 | NUR ---
PT RECEIVED FORM ASPHALT MIXING MACHINE OPERATOR NURSE. IV ON RIGHT WRIST IS PATENT , DRY AND CLEAN. NO S/S OF DISTRESS AT THIS TIME. ALL SAFETY MEASURES ARE IN PLACE WILL CONTINUE TO MONITOR.
[2020-05-25 08:00] VITALS: BP 114/86
[2020-05-25] MEDS ORDERED: MULTIVIT/MIN/CA/FE/FA 1 TAB GT SCH (09:00)
[2020-05-25] MEDS: INSULIN LANTUS 100 UNITS/ML 10 ML VIAL SUBQ SCH (09:00)
[2020-05-25] MEDS ORDERED: MULTIVITAMIN 1 TAB GT SCH (09:00)
--- NOTE | 2020-05-25 09:30 | NUR ---
MEDICATION GIVEN ORDERED. PT EDUCATED AND TOLERATED WELL. REINFORCEMENT NEEDED. NO S/S OF DISTRESS AT THIS TIME. ALL SAFETY MEASURES IN PLACE. WILL CONTINUE TO MONITOR.
[2020-05-25] MEDS: FERROUS SULFATE 300 MG/5 ML UDC GT SCH (09:37)
[2020-05-25] MEDS: FUROSEMIDE 40 MG/5 ML ORAL SOL UDC GT SCH (09:37)
[2020-05-25] MEDS: POTASSIUM CHLORIDE 20% 40 MEQ/15 ML UDC GT SCH (09:38)
[2020-05-25] MEDS: LACTULOSE 20 GM/30 ML UDC PO SCH (09:38)
[2020-05-25] MEDS: LEVOFLOXACIN 500 MG/D5W PREMIX 100 ML IV SCH (09:40)
[2020-05-25] MEDS: ASCORBIC ACID 500 MG/5 ML ORASYR GT SCH (09:41)
[2020-05-25] MEDS: PHENYTOIN 100 MG/4 ML UDC GT SCH (09:41)
[2020-05-25] MEDS ORDERED: MUC104 INH (10:03)
[2020-05-25] MEDS ORDERED: DEXT100S62 IV (10:03)
--- NOTE | 2020-05-25 11:32 | NUR ---
PT WAS GIVEN THE SCHEDULED EYE DROPS, ONE DROP EACH EYE AND BLOOD GLUCOSE WAS CHECKED AND IS 107 AND NO INSULIN COVERAGE NEEDED,NO SIGN OF DISTRESS NOTED AND WILL CONTINUE TO MONITOR PT.
[2020-05-25 12:00] VITALS: BP 122/64
[2020-05-25 12:19] VITALS: BP_SYST 120
--- NOTE | 2020-05-25 12:20 | NUR ---
REPORT WAS GIVEN TO MARY ESTRADA FROM [facility] FOR CONTINUITY OF CARE.
--- NOTE | 2020-05-25 13:29 | NUR ---
PT LEFT WITH [facility] VIA BRIANA NO S/S OF DISTRESS. REPORT GIVEN TO STAFF FOR CONTINUITY OF CARE. TELEMETRY BOX WAS TAKEN OF AND RETURNED, WRIST BANDS WERE CUT OFF. PT IS STABLE.
== END 2020-05-25 13:30 | DRG 137 ==
LOC: MED 13:36 → MMU 15:21 → MTU 05-22 20:43
PROC: 5A1945Z Respiratory Ventilation, 24-96 Consecutive Hours (ICD-10-PCS; principal; 2020-05-21)
DX: J69.0 Pneumonitis due to inhalation of food and vomit (principal); J96.21 Acute and chronic respiratory failure with hypoxia; E44.0 Moderate protein-calorie malnutrition; D50.9 Iron deficiency anemia, unspecified; I50.9 Heart failure, unspecified; E11.9 Type 2 diabetes mellitus without complications; J96.22 Acute and chronic respiratory failure with hypercapnia; G80.9 Cerebral palsy, unspecified; I11.0 Hypertensive heart disease with heart failure; R13.11 Dysphagia, oral phase; G40.909 Epilepsy, unspecified, not intractable, without status epilepticus; K72.90 Hepatic failure, unspecified without coma; J91.8 Pleural effusion in other conditions classified elsewhere; R93.89 Abnormal findings on diagnostic imaging of other specified body structures; E78.5 Hyperlipidemia, unspecified; K21.9 Gastro-esophageal reflux disease without esophagitis; Z20.822 Contact with and (suspected) exposure to COVID-19; K59.00 Constipation, unspecified; J98.11 Atelectasis; Z68.25 Body mass index [BMI] 25.0-25.9, adult; Z99.11 Dependence on respirator [ventilator] status; Z93.1 Gastrostomy status; Z93.0 Tracheostomy status; Z88.0 Allergy status to penicillin; Z88.8 Allergy status to other drugs, medicaments and biological substances; Z79.899 Other long term (current) drug therapy; Z79.4 Long term (current) use of insulin
CPT/HCPCS: 36415; 71045; 71250; 76604; 80048; 80053; 81003; 82140; 82150; 82948; 83036; 83690; 83735; 83880; 84100; 84134; 84436; 84443; 84484; 85025; 85610; 85730; 87070; 87081; 87205; 93005; 94002; 94003; 99285; C1758; J1644; J1815; J1956; J7030

== ENCOUNTER 2022-03-10 15:22 | Inpatient (IN) | payer MEDICAID ==
[~2022-03-10] VITALS: Ht 172.7 cm; Wt 91.6 kg
[~2022-03-10 15:22] MED LIST: ACET-8905 GT; ASCO500T95 GT; ATI.5 GT; BISA-218 RC; CHLO473S62 MM; ESOM20EC GT; FERR75LI22 GT; FURO-570 GT; INSU100S22 SUBQ; MAGN400S60 GT; MERO1PDS7 IV; MUC104 INH; MULT-2253 GT; NA P133E RC; PEG15DRO10 OP; PHEN100C3 GT; POTA10TA70 GT; PRO5 PO; PRON INH; SAW/1TAB GT
[2022-03-10 15:23] VITALS: BP 79/44
--- NOTE | 2022-03-10 15:23 | NUR ---
RECEIVED VENTILATOR SETTINGS FROM RT TRANSPORT; DECREASED PEEP TO 5cmH20 DUE TO PEAK PRESSURE [id number]
[2022-03-10] MEDS ORDERED: LEVOFLOXACIN 500 MG/D5W PREMIX 100 ML IV ONE (15:30)
[2022-03-10] MEDS ORDERED: NACL 0.9% 1,000 ML IV SCH (15:30)
[2022-03-10] MEDS ORDERED: NACL 0.9% 1,000 ML IV ONE (15:35)
[2022-03-10 15:41] VITALS: BP 79/44
[2022-03-10] MEDS ORDERED: ACETAMINOPHEN 325 MG SUPP RC ONE (15:45)
[2022-03-10 16:31] LABS: BASOPHILS # (AUTO) 0.1 K/uL (0.00-0.22); BASOPHILS % (AUTO) 0.9 % (0.0-2.0); EOSINOPHILS # (AUTO) 0.1 K/uL (0-0.4); EOSINOPHILS % (AUTO) 0.7 % (0.0-4.0); HEMATOCRIT 25.6 % (36-48); HEMOGLOBIN 7.7 g/dL (12.0-16.0); LYMPHOCYTES # (AUTO) 1.6 K/uL (2.5-16.5); LYMPHOCYTES % (AUTO) 16.2 % (20.5-51.1); MEAN CORPUSCULAR HEMOGLOBIN 32 pg (27-31); MEAN CORPUSCULAR HGB CONC 30 g/dL (33-37); MEAN CORPUSCULAR VOLUME 104.5 fL (80-94); MONOCYTES # (AUTO) 0.6 K/uL (0.8-1.0); MONOCYTES % (AUTO) 5.6 % (1.7-9.3); NEUTROPHILS # (AUTO) 7.8 K/uL (1.8-7.7); NEUTROPHILS % (AUTO) 76.6 % (42.2-75.2); PLATELET COUNT (AUTO) 117 K/uL (140-450); RED BLOOD CELL COUNT(AUTO) 2.45 MIL/uL (4.20-5.40); RED CELL DISTRIBUTION WIDTH 17.8 % (11.6-13.7); WHITE BLOOD COUNT (AUTO) 10.1 K/uL (4.8-10.8)
[2022-03-10] MEDS ORDERED: IBUPROFEN 800 MG TAB GT ONE (17:05)
[2022-03-10 17:16] LABS: BILIRUBIN,URINE NEGATIVE (NEGATIVE); BLOOD, URINE TRACE-I (NEGATIVE); LEUKOCYTE ESTERASE ,URINE 3+ (NEGATIVE); NITRITE, URINE POSITIVE (NEGATIVE); UGLUCOSE NEGATIVE (NEGATIVE)
[2022-03-10] MEDS ORDERED: IBUPROFEN CHILDRENS 100 MG/5 ML UDC ONE (17:25)
[2022-03-10] MEDS ORDERED: IBUPROFEN CHILDRENS 100 MG/5 ML UDC GT ONE (17:25)
[2022-03-10 17:29] LABS: ANION GAP 10.2 (8-16); CARBON DIOXIDE 35.3 mmol/L (21-32); CREATININE 0.6 mg/dL (0.6-1.3); POTASSIUM 4.5 mmol/L (3.5-5.1); TOTAL BILIRUBIN 0.3 mg/dL (0.0-1.0)
[2022-03-10 17:29] LABS: APPEARANCE,URINE CLOUDY (CLEAR); COLOR,URINE STRAW (YELLOW)
[2022-03-10 17:30] LABS: RBC,URINE 0-5 /HPF (0-5); WBC,URINE TOO MANY TO COUNT /HPF (0-5)
--- NOTE | 2022-03-10 17:40 | NUR ---
MEDICATED FOR FEVER VIA GTUBE, ST ON CM, O2 SAT 93 % AT 40% O2, SR UP TIMES 2
[2022-03-10] MEDS ORDERED: MAG SULF 2000 MG/WATER PREMIX 50 ML IV PRN (18:35)
[2022-03-10] MEDS ORDERED: ZOLPIDEM 10 MG TAB PO PRN (18:35)
[2022-03-10] MEDS ORDERED: DOCUSATE SODIUM 100 MG GELCAP PO PRN (18:35)
[2022-03-10] MEDS ORDERED: ACETAMINOPHEN 325 MG TAB PO PRN (18:35)
[2022-03-10] MEDS ORDERED: POTASSIUM CHLORIDE 10 MEQ TABER PO PRN (18:35)
[2022-03-10] MEDS ORDERED: MORPHINE SULFATE 2 MG/ML SYR IVP PRN (18:35)
[2022-03-10] MEDS ORDERED: ONDANSETRON 4 MG/2 ML VIAL IVP PRN (18:35)
[2022-03-10] MEDS ORDERED: LORazepam 2 MG/ML VIAL IVP PRN (18:35)
[2022-03-10 19:03] LABS: ANION GAP 10.7 (8-16); CARBON DIOXIDE 34.9 mmol/L (21-32); CREATININE 0.6 mg/dL (0.6-1.3); POTASSIUM 4.6 mmol/L (3.5-5.1)
--- NOTE | 2022-03-10 19:25 | NUR ---
PT IS NON VERBAL. OPEN HER MOUTH, HAS TRCH TO THE VENT. HEART RATE 117, AFEBRILE. PT IS BED BOUND. HAS G TUBE.
--- NOTE | 2022-03-10 20:10 | NUR ---
PT HAS FEVER AT 103.4
[2022-03-10] MEDS ORDERED: ACETAMINOPHEN 650 MG SUPP RC ONE (20:13)
--- NOTE | 2022-03-10 20:25 | NUR ---
PT WAS GIVEN TYLENOL RECTALLY
[2022-03-10 21:30] VITALS: BP 102/50
--- NOTE | 2022-03-10 21:48 | NUR ---
[facility] Admited to TELEMETRY . Will go to room 124 b. Belongings list completed. Report to [MARY].
--- NOTE | 2022-03-10 22:00 | NUR ---
RECEIVED PT FROM ER NURSE. PT ARRIVED VIA GURNEY, ON TRACH TO VENT FIO2 45%. PT HAS GTUBE. PT NPO STATUS. PT HAS IV ON L FA G20, SALINE LOCKED. PT HAS WOUNDS ON SACRAL AREA AND ABDOMINAL FOLDS.MRSA SWAB DONE. VITALS STABLE. ST ON TELE 113. ALL PRECAUTIONS IN PLACE, CALL LIGHT WITHIN REACH. WILL CONTINUE TO MONITOR.
[2022-03-11] VITALS: BP 103/50
--- NOTE | 2022-03-11 00:27 | NUR ---
PT ASLEEP, VISIBLE CHEST RISE AND FALL NOTED. BREATHING EQUAL AND UNLABORED. O2 SAT AT 97%. ALL PRECAUTIONS IN PLACE. WILL CONTINUE TO MONITOR.
[2022-03-11 04:00] VITALS: BP 104/56
[2022-03-11 06:11] LABS: CARBON DIOXIDE 35.8 mmol/L (21-32); CREATININE 0.5 mg/dL (0.6-1.3)
[2022-03-11 06:27] LABS: ANION GAP 8.6 (8-16); POTASSIUM 4.4 mmol/L (3.5-5.1)
[2022-03-11] MEDS ORDERED: DEXTROSE 5% 1,000 ML IV SCH (06:40)
--- NOTE | 2022-03-11 06:51 | NUR ---
CRITICAL CARE LAB SODIUM 159 AND BUN 62. ORDERS RECEIVED FROM DR. BERNAL.
--- NOTE | 2022-03-11 07:06 | NUR ---
PT IS STABLE. NO ACUTE EVENTS THROUGHOUT THE NIGHT.ALL NEEDS ATTENDED. NO S/SX OF DISTRESS NOTED.ALL PRECAUTIONS IN PLACE. CALL LIGHT WITHIN REACH. WILL ENDORSE TO DAY SHIFT RN.
[2022-03-11 07:44] LABS: BASOPHILS # (AUTO) 0.1 K/uL (0.00-0.22); BASOPHILS % (AUTO) 0.8 % (0.0-2.0); EOSINOPHILS # (AUTO) 0.1 K/uL (0-0.4); EOSINOPHILS % (AUTO) 1.1 % (0.0-4.0); HEMATOCRIT 25.2 % (36-48); HEMOGLOBIN 7.7 g/dL (12.0-16.0); LYMPHOCYTES # (AUTO) 1.3 K/uL (2.5-16.5); LYMPHOCYTES % (AUTO) 18.1 % (20.5-51.1); MEAN CORPUSCULAR HEMOGLOBIN 31 pg (27-31); MEAN CORPUSCULAR HGB CONC 30 g/dL (33-37); MEAN CORPUSCULAR VOLUME 103.2 fL (80-94); MONOCYTES # (AUTO) 0.4 K/uL (0.8-1.0); MONOCYTES % (AUTO) 5.7 % (1.7-9.3); NEUTROPHILS # (AUTO) 5.5 K/uL (1.8-7.7); NEUTROPHILS % (AUTO) 74.3 % (42.2-75.2); PLATELET COUNT (AUTO) 114 K/uL (140-450); RED BLOOD CELL COUNT(AUTO) 2.44 MIL/uL (4.20-5.40); RED CELL DISTRIBUTION WIDTH 17.6 % (11.6-13.7); WHITE BLOOD COUNT (AUTO) 7.4 K/uL (4.8-10.8)
[2022-03-11 08:00] VITALS: BP 108/55
--- NOTE | 2022-03-11 08:00 | NUR ---
RECEIVED IN BED OBTUNDANT ASSESSMENT COMPLETED PLAN OF CARE REVIEWED GT INTACT AND PATENT NEW ORDER TO START GT FEEDING PER FNS RECOMMENDATIONS WILL NOTE CARRY OUT AND FOLLOW UP
[2022-03-11] MEDS: MIDODRINE 5 MG TAB PO SCH ×3 (08:25→16:43)
[2022-03-11] MEDS ORDERED: LEVOFLOXACIN 500 MG/D5W PREMIX 100 ML IV SCH (09:00)
[2022-03-11] MEDS: PANTOPRAZOLE 40 MG INJ VIAL IVP SCH (09:06)
--- NOTE | 2022-03-11 10:13 | NUR ---
PATIENT HAS BEEN SCREENED AND CATEGORIZED HIGH NUTRITION RISK. PATIENT WILL BE SEEN WITHIN 1-2 DAYS OF ADMISSION. 03/10/22-03/12/[address] NUTRITION CONSULT RECEIVED FOR TUBE FEEDING
--- NOTE | 2022-03-11 11:18 | NUR ---
03/11/22 RD INITIAL ASSESSMENT COMPLETED. PLEASE REFER TO NUTRITION ASSESSMENT UNDER CARE ACTIVITY FOR ESTIMATED NUTRITIONAL NEEDS. 1. WHEN/IF MEDICALLY APPROPRIATE, RECOMMEND VITAL AF 1.2 MONIE WITH A GOAL RATE OF 55ML/HR -FWF 200 ML Q8H OR PER MD -START AT 20 ML/HR AND INCREASE BY 20 ML Q4H UNTIL GOAL RATE IS REACHED PT TOLERATES. -RECOMMEND ANITRA BID (160 KCAL, 5 G PROTEIN) FOR WOUND HEALING -VITAL AF 1.2 MONIE WILL PROVIDE 1320 ML VOLUME, 1584 KCAL, AND 99 GRAMS OF PROTEIN. WITH ANITRA BID, THIS MEETS 100% OF PTS ESTIMATED ENERGY NEEDS; ADEQUATE. 2. MONITOR NPO STATUS. 3. RD TO FOLLOW-UP 2-3 DAYS, HIGH RISK DAVID FIORE RD
[2022-03-11 12:00] VITALS: BP 102/53
[2022-03-11] MEDS: MEROPENEM 1,000 MG in NACL 0.9% 100 ML IV SCH ×2 (13:09→20:25)
[2022-03-11 16:00] VITALS: BP 105/46
[2022-03-11] MEDS: DEXTROSE 5% 1,000 ML IV SCH (16:23)
--- NOTE | 2022-03-11 18:59 | NUR ---
VITAL STARTED AT 1600 AT 20 ML/HR GOAL 55 NO DISTRESS NOTED PT DUE FOR WOUND CONSULT NO SIGNIFICANT CHANGES WILL ENDORSE CARE TO ONCOMING RN
--- NOTE | 2022-03-11 19:36 | NUR ---
WOUND CARE COMPLETED PT CLEANED PICTURES TAKEN OF WOUNDS SEE HARD CHART FOR PICTURES CARE ENDORSED TO RN
--- NOTE | 2022-03-11 19:43 | NUR ---
LACERATION AT ABDOMEN PICTURE ON CHART SACRAL AND BUTTOCKS WOUND PICTURES TAKEN AND ON CHART
[2022-03-11 20:00] VITALS: BP 107/44
--- NOTE | 2022-03-11 20:00 | NUR ---
RECEIVED REPORT EARLIER FROM DAY NURSE FOR CONTINUITY OF CARE. RECEIVED PATIENT LAYING IN BED. PT OBTUNDED, ON TRACHE TO VENT SETTING ORDERED, FIO2 45% SATING 95%. PT NOT IN ANY DISTRESS. VSS, AFEBRILE, ST ON TELE, HR-107. IVF INFUSING ORDERED. GTF ALSO INFUSING ORDERED. NOTED 110 CC RESIDUAL. HOB ELEVATED TO PREVENT ASPIRATION. CALL LIGHT WITHIN REACH. WILL CONTINUE POC AND MONITORING.
--- NOTE | 2022-03-11 22:00 | NUR ---
PATIENT HAD A BM, RON CARE, MOUTH CARE AND SUCTION PROVIDED. ALSO CLEANED THE PATIENT G TUBE SITE AND PLACED A NEW DRESSING.
[2022-03-12] VITALS (9 sets, daily range): BP systolic 96–109; BP diastolic 34–66
--- NOTE | 2022-03-12 | NUR ---
VITAL SIGNS STABLE, AFEBRILE, SATING 97% ON TRACHE TO VENT SETTING, FI02 45%. ST W/ PAC'S ON TELE , HR-116. NOT IN ANY DISTRESS. FLACC-0.
[2022-03-12] MEDS ORDERED: Z-GUARD PASTE TP ONE (00:23)
[2022-03-12 01:53] LABS: ALBUMIN 1.9 g/dL (3.4-5.0); ANION GAP 10.5 (8-16); CARBON DIOXIDE 33.7 mmol/L (21-32); CREATININE 0.5 mg/dL (0.6-1.3); MAGNESIUM 2.6 mg/dL (1.8-2.4); PHOSPHORUS 3.9 mg/dL (2.5-4.9); POTASSIUM 4.2 mmol/L (3.5-5.1); TOTAL BILIRUBIN 0.5 mg/dL (0.0-1.0)
--- NOTE | 2022-03-12 02:15 | NUR ---
PATIENT ASLEEP AT THIS TIME. VISIBLE CHEST RISE AND FALL NOTED. PT NOT IN ANY DISTRESS. SAFETY MEASURES IN PLACED.WILL CONTINUE MONITORING.
[2022-03-12] MEDS: DEXTROSE 5% 1,000 ML IV SCH ×4 (03:10→23:50)
--- NOTE | 2022-03-12 04:00 | NUR ---
PATIENT VITAL SIGNS STABLE, AFEBRILE,SATING 97% ON TRACH TO VENT SETTING. NOT IN ANY DISTRESS , SUCTIONED NEEDED. ST W/ PAC'S ON TELE, HR-109.
[2022-03-12] MEDS: MEROPENEM 1,000 MG in NACL 0.9% 100 ML IV SCH ×3 (05:02→20:47)
[2022-03-12 05:49] LABS: BASOPHILS # (AUTO) 0.1 K/uL (0.00-0.22); BASOPHILS % (AUTO) 0.5 % (0.0-2.0); EOSINOPHILS # (AUTO) 0.2 K/uL (0-0.4); EOSINOPHILS % (AUTO) 1.7 % (0.0-4.0); HEMATOCRIT 23.7 % (36-48); HEMOGLOBIN 7.3 g/dL (12.0-16.0); LYMPHOCYTES # (AUTO) 0.9 K/uL (2.5-16.5); LYMPHOCYTES % (AUTO) 8.7 % (20.5-51.1); MEAN CORPUSCULAR HEMOGLOBIN 32 pg (27-31); MEAN CORPUSCULAR HGB CONC 31 g/dL (33-37); MEAN CORPUSCULAR VOLUME 103.3 fL (80-94); MONOCYTES # (AUTO) 0.4 K/uL (0.8-1.0); MONOCYTES % (AUTO) 4.1 % (1.7-9.3); NEUTROPHILS # (AUTO) 8.9 K/uL (1.8-7.7); PLATELET COUNT (AUTO) 106 K/uL (140-450); RED CELL DISTRIBUTION WIDTH 17.4 % (11.6-13.7); WHITE BLOOD COUNT (AUTO) 10.4 K/uL (4.8-10.8)
[2022-03-12 06:24] LABS: ANION GAP 9.3 (8-16); CARBON DIOXIDE 34.7 mmol/L (21-32); CREATININE 0.5 mg/dL (0.6-1.3)
--- NOTE | 2022-03-12 07:36 | NUR ---
PT IN THE TRACK TO VENT 02 SAT 95% HOB UP 30% [id number]
--- NOTE | 2022-03-12 07:38 | NUR ---
ENDORSED PATIENT TO DAY NURSE FOR CONTINUITY OF CARE. PATIENT STABLE AND NOT IN ANY DISTRESS. SIGNING OFF.
[2022-03-12] MEDS: PANTOPRAZOLE 40 MG INJ VIAL IVP SCH (09:08)
[2022-03-12] MEDS: MIDODRINE 5 MG TAB PO SCH ×3 (09:08→17:00)
--- NOTE | 2022-03-12 13:12 | NUR ---
CHECKED RESIDUAL IT IS 300CC AND HELD THE FEEDING FOR NOW.[id number]
--- NOTE | 2022-03-12 15:28 | NUR ---
DC PLANNING SW OUTREACHED TO [facility] AND SPOKE WITH SOURAV CO ADMIN. SOURAV REPORTS PATIENT IS IN LONG-TERM SUBACUTE CARE, INITIAL ADMISSION DATE 07/25/15. PATIENT IS TOTAL CARE AT [facility]. PATIENT IS TRAYC TO VENT AND BED BOUND. PATIENT REPORTED TO BE NONVERBAL. PATIENT IS [facility] CONNECTED, [facility] WORKER; MARK ANTHONY MAYNOR, EXT. [id number]. PATIENT IS REPORTED TO HAVE ACTIVE FAMILY INVOLVEMENT, SISTER, EVELINA IS REPORTED TO CALL FREQUENTLY FOR UPDATE ON PT. [facility] AND [facility] ARE REPORTED TO HAVE BEEN NOTIFIED THAT PATIENT IS ADMITTED TO [facility]. SOURAV REPORTS DECISION MAKING IS DONE BY [facility] WORKER AND SISTER, EVELINA ELIZALDE, . PT IS REPORTED TO HAVE DIABETES THAT IS WELL MANAGED AND IS FOLLOWED BY AT [facility]. MA PLAN IS FOR PT TO RETURN TO [facility] ONCE MEDICALLY STABLE. Addendum: 03/12/22 at 1529 by Smith UNDERWOOD Amended: Links added.
--- NOTE | 2022-03-12 15:47 | NUR ---
PT BP LOW 94\33 MAP OF 50 , DR CHOUDHURY ORDERED THE NS BOLUS ONE LITTER ,IT IS RUNNING, THE G PORT RESIDUAL CHECKED STILL HAVE MORE 100 CONTINUED TO HOLD. IF THE MAP IS NOT GREATER THAN 60 WE WILL TRANSFER PT TO ICU. DAVID
--- NOTE | 2022-03-12 18:25 | NUR ---
PT CHECKED TO SEE IF SOILED UNDER THE DIAPER SEEMS NOT WET, C\O LOW BP NOT ABLE TO MOVE PT, RESIDUAL IS STILL GREATER THAN 100, AFTER BOLUS, THE IV IS MAINTAINED IN 120\HOUR , RT SUCTIONED , HR CONTINUE TO BE TACHI.[id number]
--- NOTE | 2022-03-12 20:00 | NUR ---
RECEIVED REPORT FROM MORNING SHIFT NURSE. PT IS PHASIC AND BEDBOUND. PT WILL BE GOING TO ICU DUE TO HYPOTENSION. PT IS TRACH TO BIPAP WITH FIO2- 45, RATE OF 16, PEEP OF 16.5 ON 16.5 LITERS. PT HAS G-TUBE BUT IT WAS WITH HOLD WITH VITAL 1.2 DUE TO 300 CC OF RESIDUALS. PT HAS LEFT UPPER ARM GAUGE 22 RUNNING WITH D5 AT 120. PT HAS WOUND ON HAND HAND, LEFT LEG SWOLLEN AND BILATERAL LEGS ARE REDDISH. ALL SAFETY MEASURES IMPLEMENTED. BED WHEELS ON LOCK, BED IN LOW POSITION AND CALL LIGHT WITHIN REACH.
--- NOTE | 2022-03-12 20:45 | NUR ---
STARTED TRANSPORT OF PT ON VENTILATOR FROM [facility] TO ICU #6. AMBU BAG PRESENT AT BEDSIDE, VENTILATOR IS PLUGGED INTO A RED OUTLET, AIRWAY IS A PORTEX 7 AND IT IS PATENT, SUCTION IS WORKING PROPERLY. PT IS IN NO DISTRESS AT THIS TIME. ESTIMATED TIME OF TRANSFER 25 MINS
--- NOTE | 2022-03-12 20:46 | NUR ---
PT WAS TRANSPORTED TO ICU ON BED 6. PT VS BP-99/40, P-94, T-99.2 RR-19 SATING AT 97% WITH TRACH TO BIPAP WITH RATE OF 16 FI02-45, PEEP OF 5 ON 16.5 LITERS. NO S/S OF RESPIRATORY DISTRESS NOTED. ALL SAFETY MEASURES IMPLEMENTED. BED IN LOW POSITION, BED IN LOW POSITION AND CALL LIGHT WITHIN REACH.
--- NOTE | 2022-03-12 21:30 | NUR ---
RECEIVED REPORT [facility] NURSE REGI RN FOR CONTINUITY OF CARE. PATIENT LAYING IN BED, OBTUNDED, ON TRACH TO VENT SETTING FIO2 45%, PEEP 5, TV 400, RATE 16. SATING 95-100%%. PT NOT IN ANY DISTRESS. VSS, AFEBRILE, SR 0N THE MONITOR. IVF D5 INFUSING AT 120ML/HR. GTF ALSO INFUSING AT 55ML/HR, H2O 300ML Q 4 HRS. HOB ELEVATED FOR ASPIRATION PREVENTION. CALL LIGHT WITHIN REACH. WILL CONTINUE POC AND MONITORING.
--- NOTE | 2022-03-12 21:31 | NUR ---
GAVE REPORT TO SIR SILVERIO. PATIENT IS APHASI AND BEDBOUND. PT IS ON TRACH TO VENT SETTING FIO2 45%, PEEP 5, TV 400, RATE 16. SATING 97%. PT HAS IV ON LEFT UPPER ARM GAUGE 22 RUNNING WITH D5 AT 120. PT HAS G-TUBE WITH VITAL 1.2 BUT IT WAS HOLD DUE TO 300CC RESIDUALS. PT HAS RIGHT HAND SWOLLEN, LEFT LEG SWOLLEN, BILATERAL LEGS ARE REDDISH, COCCYX WOUND AND LEFT BUTTOCKS WOUND.
--- NOTE | 2022-03-12 22:00 | NUR ---
INSERTED FIGUEROA CATH AND RECTAL TUBE PER MD ORDER
[2022-03-13] VITALS (13 sets, daily range): BP systolic 93–145; BP diastolic 43–57
[2022-03-13] MEDS: MEROPENEM 1,000 MG in NACL 0.9% 100 ML IV SCH ×3 (05:20→21:19)
[2022-03-13 05:50] LABS: BASOPHILS % (AUTO) 0.4 % (0.0-2.0); EOSINOPHILS # (AUTO) 0.1 K/uL (0-0.4); EOSINOPHILS % (AUTO) 1.2 % (0.0-4.0); LYMPHOCYTES # (AUTO) 0.7 K/uL (2.5-16.5); LYMPHOCYTES % (AUTO) 6.3 % (20.5-51.1); MEAN CORPUSCULAR HEMOGLOBIN 32 pg (27-31); MEAN CORPUSCULAR HGB CONC 31 g/dL (33-37); MEAN CORPUSCULAR VOLUME 100.1 fL (80-94); MONOCYTES # (AUTO) 0.4 K/uL (0.8-1.0); MONOCYTES % (AUTO) 3.3 % (1.7-9.3); NEUTROPHILS % (AUTO) 88.8 % (42.2-75.2); PLATELET COUNT (AUTO) 106 K/uL (140-450); RED BLOOD CELL COUNT(AUTO) 1.99 MIL/uL (4.20-5.40); RED CELL DISTRIBUTION WIDTH 17.3 % (11.6-13.7); WHITE BLOOD COUNT (AUTO) 11.2 K/uL (4.8-10.8)
[2022-03-13 06:15] LABS: ANION GAP 8.9 (8-16); CARBON DIOXIDE 32.5 mmol/L (21-32); CREATININE 0.5 mg/dL (0.6-1.3); POTASSIUM 3.4 mmol/L (3.5-5.1)
[2022-03-13 06:52] LABS: HEMATOCRIT 19.9 % (36-48); HEMOGLOBIN 6.3 g/dL (12.0-16.0)
--- NOTE | 2022-03-13 06:57 | NUR ---
RECEIVED CRITICAL LAB Hgb 6.3 AND Hct 19.9; TEXTED DR SORIANO AND WAITING FOR DR SORIANO TO CALL BACK
--- NOTE | 2022-03-13 06:59 | NUR ---
WILL ENDORSE TO MORNING RN FOR CONTINUITY CARE
--- NOTE | 2022-03-13 07:20 | NUR ---
RECEIVED REPORT FROM FUNERAL SALES MANAGER NURSE FOR CONTINUITY OF CARE. PATIENT LYING DOWN IN BED, APHASIC, RESPONSIVE TO PAIN. ON TRACH TO VENT WITH SETTINGS: FIO2:45%, PEEP:5, RATE 16, VT: 400 ML WITH O2 SAT AT 99%. GENET MIDLINE INTACT, PATIENT, INFUSING IVF PER MD ORDERS. FIGUEROA CATHETER IN PLACE, GTUBE IN PLACE RUNNING TUBE FEEDING PER MD ORDERS. REVIEWED PLAN OF CARE WITH PATIENT. UNABLE TO COMPREHEND. SAFETY MEASURES IN PLACE, WILL CONTINUE TO MONITOR.
--- NOTE | 2022-03-13 07:30 | NUR ---
RECEIVED PT ON PRVC 400,RR16,+5,45%. VENT WHEELS ARE LOCKED, PLUGGED INTO RED OUTLET, AMBUBAG AT BEDSIDE, ALARMS ARE SET AND AUDIBLE. SATURATION 99%. THICK PALE YELLOW SECRETIONS ARE COMING OUT OF THE STOMA SITE
[2022-03-13] MEDS: DEXTROSE 5% 1,000 ML IV SCH ×2 (08:10→11:35)
[2022-03-13] MEDS: MIDODRINE 5 MG TAB PO SCH ×3 (08:15→17:31)
[2022-03-13] MEDS: PANTOPRAZOLE 40 MG INJ VIAL IVP SCH (08:15)
--- NOTE | 2022-03-13 08:16 | NUR ---
SCHEDULED MEDICATIONS DUE GIVEN. WILL CONTINUE TO MONITOR.
--- NOTE | 2022-03-13 10:19 | NUR ---
REPOSITIONED, CLEANED, AND CHANGED WOUND DRESSING PER MD ORDERS. WILL CONTINUE TO MONITOR.
--- NOTE | 2022-03-13 10:20 | NUR ---
WOUND CARE EVALUATION NOTE: SKIN ASSESSMENT DONE WITH PRIMARY RN ON THIS 75 Y/O PT ADMITTED FROM SNF WITH SEPTIC [facility]OCK SECONDARY TO [facility] UTI. PAST MEDICAL HX INCLUDES CEREBRAL PALSY, CHF, CHRONIC RESPIRATORY FAILURE TRACH TO VENT, G-TUBE. PT. ADMITTED WITH PRESSURE INJURY. ALL ABOVE INFORMATION OBTAINED FROM ADMISSION H&P. PT SKIN IS WARM AND MOIST, UPPER EXTREMITIES TRACE EDEMA. BLE NO HAIR GROWTH, BLE +1 EDEMA. DORSAL PEDAL PULSES PRESENT AND NORMAL. CAPILLARY REFILLED < 2 SEC. X 10 TOES. PT. WITH FLEX SEAL. F/C PATENT WITH MODERATE AMOUNT YELLOW COLOR URINE OUT PUT OBSERVED. PLAN OF CARE DISCUSSED WITH PRIMARY RN ERVIN. INTEGUMENTARY: -ORAL MEMBRANE PINK IN COLOR. LIPS, CHEEKS SKIN DRY, NO OPEN WOUNDS -TRACH SITE AND GT SITE RON STOMA SKIN DRY AND CLEAN. SKIN INTACT. -ABDOMEN DISTENDED, SOFT -INTERTRIGO TO ABDOMINAL FOLDS AND GROINS SKIN MOIST AND RED MULTIPLE SUPERFICIAL EROSIONS, MOIST -SEVERE MOISTURE ASSOCIATED SKIN DAMAGE TO LEFT BUTTOCK 6X4X0.2CM WOUND BED RED GRANULATION TISSUE. RON-WOUND SKIN DTI, IN DARK PURPLE COLOR, NO ODOR, MOIST FURTHER DAMAGE INDICATED -PRESSURE INJURY STAGE TO 3 TO RIGHT SACRUM 1.5X1X0.1CM WOUND BED 50% RED GRANULATION TISSUE AND 50% OF DTI, IN DARK PURPLE COLOR, NO ODOR, RON-WOUND SKIN MOIST. -COCCYX UN-STAGEABLE PRESSURE INJURY 1X0.5CM WOUND BED 100% YELLOW SLOUGH TISSUE, MOIST, NO ODOR. RON-WOUND SKIN MOIST, DTI, IN DARK PURPLE COLOR, FURTHER DAMAGE INDICATED. RECOMMENDATIONS: -APPLY NYSTATIN CREAM TO ABDOMINAL FOLD, B/L GROINS, MEDIAL THIGHS TO PERINEUM BID AND PRN IF SOILING -CLEANSE SACRAL COCCYX AND RIGHT BUTTOCK WITH WOUND CLEANSING SOLUTION APPLY WITH THERAHONEY GEL TO WOUND BED, COVER WITH DRY DRESSING QD AND PRN IF SOILING -APPLY HEEL PROTECTOR AND OFFLOADING BILATERAL HEELS -POSITIONING: TURN AND REPOSITION PATIENT Q 2H OR SOONER USE PILLOWS TO KEEP BONY PROMINENCES FROM DIRECT CONTACT WITH SURFACES USE REPOSITIONING WEDGES TO PROVIDE 30-DEGREE ANGLE FOR SIDE LYING POSITIONS OFFLOADING OR FOAM DRESSING TO ALL TUBING TO PREVENT MEDICAL DEVICES RELATED PRESSURE INJURY -RE-EVALUATING AND MANAGING INCONTINENCE MONITOR SKIN CONDITION DURING POSITION CHANGE DO NOT MASSAGE REDNESS, BONY PROMINENCES FREQUENT RON-CARE AND PROVIDE BARRIER CREAMS PRN IF SOILING MOISTURE CONTROL BY OFFER BED FISH/URINAL /ABSORBENT PAD TO WICK AND HOLD MOISTURE. MAY OBTAIN ORDER FOR FLEX SEAL, RECTAL BAG OR FIGUEROA CATHETER PER PHYSICIAN ORDER UNLESS OTHERWISE CONTRAINDICATED KEEP SKIN DRY AND PROTECT FROM FRICTION -MANAGE FRICTION/SHEAR/MOBILITY KEEP HOB AT THE LOWEST LEVEL OF ELEVATION NO MORE THAN 30 DEGREES UNLESS OTHERWISE CONTRAINDICATED USE LIFT SHEET OR TRANSFER DEVICE TO MOVE PATIENT AND PREVENT LATERAL SHEER. CONSIDER TRAPEZE IF APPROPRIATE PROTECT HEELS, ELBOWS BONY PROMINENCES WITH SKIN BERRIES OR FOAM DRESSING IF EXPOSED TO FRICTION OFFLOAD BILATERAL HEELS BY PLACING PILLOWS UNDER CALVES AT ALL TIMES, UNLESS OTHERWISE CONTRAINDICATED -PRESSURE REDISTRIBUTION SURFACE THERAPY IVAN ISOFLEX NOEMÍ MATTRESS -NUTRITION: PLEASE FOLLOW RD RECOMMENDATIONS AND OFFER NUTRITION SUPPLEMENTS IF ORDERED.
[2022-03-13] MEDS: POTASSIUM CHLORIDE 20% 40 MEQ/15 ML UDC GT PRN (10:24)
--- NOTE | 2022-03-13 10:24 | NUR ---
POTASSIUM PRN GIVEN VIA GTUBE PER ORDERS. K:3.4
--- NOTE | 2022-03-13 12:24 | NUR ---
SCHEDULED MEDICATIONS DUE GIVEN. WILL CONTINUE TO MONITOR.
--- NOTE | 2022-03-13 15:00 | NUR ---
1 UNIT PRBC STARTED. WILL CONTINUE TO MONITOR.
--- NOTE | 2022-03-13 17:32 | NUR ---
CLEANED AND REPOSITIONED PATIENT. SCHEDULED MEDICATIONS DUE GIVEN. WILL CONTINUE TO MONITOR.
--- NOTE | 2022-03-13 19:26 | NUR ---
GAVE REPORT TO RN VASCULAR NURSE FOR CONTINUITY OF CARE.
--- NOTE | 2022-03-13 19:36 | NUR ---
RECEIVED REPORT FROM AM SHIFT. PATIENT WAS SEEN AND ASSESSED. PATIENT IS TRACH WITH PORTEX SIZE 7 AND SECURED WITH A TRACH TIE. PATIENT IS ON VENTILATOR SUPPORT. VENTILATOR PLUGGED IN RED OUTLET. VENTILATOR ALARMS SET APPROPRIATELY AND AUDIBLE TO ENVIRONMENT. AMBU BAG AT BEDSIDE. HEAD OF BED GREATER THAN 30 DEGREES. NOTICED ADEQUATE BILATERAL CHEST RISE AND FALL. PATIENT IS IN NO RESPIRATORY DISTRESS AT THIS TIME.VENT SETTINGS: AC/PRVC RR 16, Vt 400, PEEP 5, FiO2 45% WITH SPO2 OF 97%. BILATERAL BREATH SOUNDS ON AUSCULTATION; UPPER LOBES: COARSE, LOWER LOBES: COARSE. SUCTION LARGE AMOUNT OF WHITE/YELLOW THICK SECRETIONS FROM TRACH TUBE.
[2022-03-14] VITALS (24 sets, daily range): BP systolic 87–128; BP diastolic 36–69
[2022-03-14] MEDS ORDERED: NYSTATIN POW 100 MU/GM 15 GM BTL TP SCH (01:00)
[2022-03-14] MEDS: NYSTATIN CRE 100 MU/GM 15 GM TUBE TP SCH ×2 (01:29→12:17)
[2022-03-14] MEDS: MEROPENEM 1,000 MG in NACL 0.9% 100 ML IV SCH ×3 (05:05→20:14)
[2022-03-14] MEDS: DEXTROSE 5% 1,000 ML IV SCH (05:22)
[2022-03-14 06:02] LABS: BASOPHILS % (AUTO) 0.2 % (0.0-2.0); EOSINOPHILS # (AUTO) 0.6 K/uL (0-0.4); EOSINOPHILS % (AUTO) 4.2 % (0.0-4.0); HEMATOCRIT 25.9 % (36-48); HEMOGLOBIN 8.4 g/dL (12.0-16.0); LYMPHOCYTES # (AUTO) 0.4 K/uL (2.5-16.5); LYMPHOCYTES % (AUTO) 2.9 % (20.5-51.1); MEAN CORPUSCULAR HEMOGLOBIN 30 pg (27-31); MEAN CORPUSCULAR HGB CONC 32 g/dL (33-37); MEAN CORPUSCULAR VOLUME 94.1 fL (80-94); MONOCYTES # (AUTO) 0.3 K/uL (0.8-1.0); MONOCYTES % (AUTO) 2.5 % (1.7-9.3); NEUTROPHILS # (AUTO) 12.4 K/uL (1.8-7.7); NEUTROPHILS % (AUTO) 90.2 % (42.2-75.2); PLATELET COUNT (AUTO) 121 K/uL (140-450); RED BLOOD CELL COUNT(AUTO) 2.75 MIL/uL (4.20-5.40); RED CELL DISTRIBUTION WIDTH 21.1 % (11.6-13.7); WHITE BLOOD COUNT (AUTO) 13.8 K/uL (4.8-10.8)
[2022-03-14 06:20] LABS: ANION GAP 9.5 (8-16); CARBON DIOXIDE 31.3 mmol/L (21-32); CREATININE 0.5 mg/dL (0.6-1.3); POTASSIUM 3.8 mmol/L (3.5-5.1)
--- NOTE | 2022-03-14 07:15 | NUR ---
RECEIVED BEDSIDE REPORT FROM DIE CAST ENGINEER FELTON RN. PT LETHARGIC. SR ON MONITOR. TRACH TO VENT, AC PRVC FIO2 45%, VT 400, RR 16, PEEP 5. G TUBE IN PLACE, TUBE FEEDING VITAL RUNNING AT 55MLS/H, FWF 300ML Q4H. FIGUEROA IN PLACE. INCONTINENT. PICC TO GENET, RUNNING D5 @ 75MLS/H. SKIN SEE WOUND ASSESSMENT. BED TO LOWEST POSITION, CALL LIGHT WITHIN REACH, WILL CONTINUE TO MONITOR.
[2022-03-14] MEDS: MIDODRINE 5 MG TAB PO SCH ×3 (08:16→16:35)
[2022-03-14] MEDS: PANTOPRAZOLE 40 MG INJ VIAL IVP SCH (08:16)
[2022-03-14] MEDS ORDERED: NOREPINEPHRINE 4 MG in DEXTROSE 5% 250 ML IV PRN (08:55)
[2022-03-14] MEDS: THERAHONEY GEL 42.5 GM TP SCH (12:17)
--- NOTE | 2022-03-14 14:15 | NUR ---
DR STEINER ROUNDING AT BEDSIDE. UPDATED PT INFORMATION. ORDERED D/C D5 FLUID.
--- NOTE | 2022-03-14 16:35 | NUR ---
03/14/22 RD FOLLOW UP COMPLETED PLEASE REFER TO NUTRITION ASSESSMENT UNDER CARE ACTIVITY FOR ESTIMATED NUTRITIONAL NEEDS. 1. RECOMMEND GLUCERNA @ 55 ML/HR, TOLERATED - FWF 300 ML Q4H OR PER MD 2. CONTINUE ANITRA BID PER RX PROTOCOL - WITH ANITRA BID, PT WILL RECEIVE 1744 KCAL, 84 G PROTEIN, MEETING 77% ESTIMATED CALORIE NEEDS AND 75% ESTIMATED PROTEIN NEEDS 3. MONITOR RESIDUALS, LAB VALUES, AND GI. 4. RD TO FOLLOW-UP 3-5 DAYS, MODERATE RISK REVIEWED BY SANDRINE ESCALONA RD
--- NOTE | 2022-03-14 17:10 | NUR ---
CHANGED AND REPOSITIONED PATIENT. PT DESAT TO 70S, BACK TO 90S AFTER PATIENT CARE.
--- NOTE | 2022-03-14 18:30 | NUR ---
SEEN AND EXAMINED BY DR PACHECO. UPDATED PT INFORMATION.
--- NOTE | 2022-03-14 19:24 | NUR ---
ENDORSED TO MANAGEMENT SPECIALIST LEV RN FOR CONTINUITY OF CARE. ALL QUESTIONS ANSWERED.
--- NOTE | 2022-03-14 20:00 | NUR ---
ASSUMED CARE OF THIS PATIENT AND ASSESSMENT DONE AND COMPLETED.PATIENT IS LETHARGIC,AND CONTRACTED AFEBRILE.VENT SETTINGS UNCHANGED AND SUCTIONING OF SECRETIONS RENDERED ORALLY AND TRACH.WITH NO RESPIRATORY PROBLEMS OBSERVED.VITALS ON CLOSE MONITORING WITH LEVOPHED AT 1 MCG TUBE FEEDING ON HOLD FOR 400 RESIDUAL CARE PLAN IN PROGRESS
[2022-03-14] MEDS: FUROSEMIDE 20 MG/2 ML VIAL IVP SCH (20:15)
--- NOTE | 2022-03-14 20:25 | NUR ---
RECEIVED REPORT FROM AM SHIFT. PATIENT WAS SEEN AND ASSESSED. PATIENT IS TRACH WITH PORTEX SIZE 7 AND SECURED WITH A TRACH TIE. PATIENT IS ON VENTILATOR SUPPORT. VENTILATOR PLUGGED IN RED OUTLET. VENTILATOR ALARMS SET APPROPRIATELY AND AUDIBLE TO ENVIRONMENT. AMBU BAG AT BEDSIDE. HEAD OF BED GREATER THAN 30 DEGREES. NOTICED ADEQUATE BILATERAL CHEST RISE AND FALL. PATIENT IS IN NO RESPIRATORY DISTRESS AT THIS TIME.VENT SETTINGS: AC/PRVC RR 16, Vt 400, PEEP 5, FiO2 45% WITH SPO2 OF 93%. BILATERAL BREATH SOUNDS ON AUSCULTATION; UPPER LOBES: COARSE, LOWER LOBES: COARSE. SUCTION MODERATE AMOUNT OF WHITE/YELLOW THICK SECRETIONS FROM TRACH TUBE.
[2022-03-15] VITALS (18 sets, daily range): BP systolic 83–118; BP diastolic 35–56
--- NOTE | 2022-03-15 00:44 | NUR ---
SPO2 98% ON FiO2 OF 45%. TITRATED FiO2 FROM 45% TO 40%. SPO2 94%. PT TOLERATING WELL AT THIS TIME. RN NOTIFIED. WILL CONTINUE TO MONITOR PT.
[2022-03-15] MEDS: NYSTATIN CRE 100 MU/GM 15 GM TUBE TP SCH ×2 (01:47→12:16)
[2022-03-15] MEDS: MEROPENEM 1,000 MG in NACL 0.9% 100 ML IV SCH ×3 (05:00→21:47)
[2022-03-15 05:53] LABS: BASOPHILS % (AUTO) 0.4 % (0.0-2.0); EOSINOPHILS # (AUTO) 0.2 K/uL (0-0.4); EOSINOPHILS % (AUTO) 2.1 % (0.0-4.0); HEMATOCRIT 22.9 % (36-48); HEMOGLOBIN 7.4 g/dL (12.0-16.0); LYMPHOCYTES # (AUTO) 0.6 K/uL (2.5-16.5); LYMPHOCYTES % (AUTO) 5.9 % (20.5-51.1); MEAN CORPUSCULAR HEMOGLOBIN 30 pg (27-31); MEAN CORPUSCULAR HGB CONC 32 g/dL (33-37); MONOCYTES # (AUTO) 0.3 K/uL (0.8-1.0); MONOCYTES % (AUTO) 3.4 % (1.7-9.3); NEUTROPHILS # (AUTO) 8.9 K/uL (1.8-7.7); NEUTROPHILS % (AUTO) 88.2 % (42.2-75.2); PLATELET COUNT (AUTO) 109 K/uL (140-450); RED BLOOD CELL COUNT(AUTO) 2.46 MIL/uL (4.20-5.40); RED CELL DISTRIBUTION WIDTH 19.4 % (11.6-13.7)
--- NOTE | 2022-03-15 06:00 | NUR ---
ENDORSE TO MARY RUSSELL IN STABLE CONDITION/
[2022-03-15 06:26] LABS: ANION GAP 8.7 (8-16); CARBON DIOXIDE 33.1 mmol/L (21-32); CREATININE 0.3 mg/dL (0.6-1.3); POTASSIUM 3.8 mmol/L (3.5-5.1)
--- NOTE | 2022-03-15 07:15 | NUR ---
RECEIVED BEDSIDE REPORT FROM PHYSICIST SOLID STATE LEV RN. PT LETHARGIC. SR ON MONITOR. TRACH TO VENT, AC PRVC FIO2 45%, VT 400, RR 16, PEEP 5. G TUBE IN PLACE, CLAMPED DUE TO HIGH RESIDUAL. FIGUEROA IN PLACE. INCONTINENT. PICC TO GENET, RUNNING MEROPENEM @ 100MLS/H. SKIN SEE WOUND ASSESSMENT. BED TO LOWEST POSITION, CALL LIGHT WITHIN REACH, WILL CONTINUE TO MONITOR.
--- NOTE | 2022-03-15 07:55 | NUR ---
DR DOLORES MOODY AT BEDSIDE. UPDATED PT INFORMATION.
--- NOTE | 2022-03-15 08:00 | NUR ---
CHECKED RESIDUAL 90MLS. RESUME TUBE FEEDING VITAL RUNNING AT 55MLS/H, FWF 300ML Q4H, WILL CONTINUE TO MONITOR RESIDUAL.
[2022-03-15] MEDS: PANTOPRAZOLE 40 MG INJ VIAL IVP SCH (08:08)
[2022-03-15] MEDS: MIDODRINE 5 MG TAB PO SCH ×3 (08:08→17:45)
[2022-03-15] MEDS: FUROSEMIDE 20 MG/2 ML VIAL IVP SCH ×3 (08:08→21:00)
--- NOTE | 2022-03-15 08:15 | NUR ---
RECEIVED PHONE CALL FORM FAMILY/SISTER. UPDATED PT INFORMATION. ALL QUESTIONS ANSWERED.
--- NOTE | 2022-03-15 10:40 | NUR ---
TUBE FEEDING CHANGED FROM VITAL TO GLUCERNA PER DIETITIAN RECOMMENDATION.
[2022-03-15] MEDS: THERAHONEY GEL 42.5 GM TP SCH (12:16)
--- NOTE | 2022-03-15 12:54 | NUR ---
ORDERING PHYSICIAN PAGED REGARDING ABG RESULTS. WAITING FOR CALL BACK AND NEW ORDERS.
--- NOTE | 2022-03-15 13:03 | NUR ---
AWARE OF ABG RESULTS NO NEW ORDERS AT THIS TIME.
[2022-03-15] MEDS: DEXT 5% /NACL 0.9% 1,000 ML IV SCH (14:08)
--- NOTE | 2022-03-15 16:05 | NUR ---
REPORT GIVEN TO KEM GONZALES RN VIA PHONE. PT TRANSFERRED TO 110B. VS STABLE.
--- NOTE | 2022-03-15 16:10 | NUR ---
PT TRANSPORTED FROM ICU BY RN AND RT TEAM. RECEIVED TELEPHONE REPORT FROM ICU NURSE YVONNE. PT NON-VERBAL, OBTUNDED. ON T-VENT FIO2 40%, VT 400, RR18, PEEP 5. ATTACHED ROADS SUPERINTENDENT. TUBE FEEDING ON HOLD PER ICU NURSE DUE TO HIGH RESIDUAL. D5 1/2 NS RESUMED. V/S TAKEN. RESIDUAL UPON ARRIVAL TO THE UNIT 240CC. WITH FC INTACT, DRAINING YELLOW URINE. SAFETY PRECAUTIONS IN PLACE. PT CLOSELY MONITORED.
--- NOTE | 2022-03-15 18:02 | NUR ---
V/S 83/33, INFORMED DR BERNAL. RECEIVED ORDER 500MG NS BOLUS THEN RE-CHECK BP. ORDERS CARRIED OUT. HS ASSISTED NURSE AT BEDSIDE.
[2022-03-15] MEDS ORDERED: NACL 0.9% 500 ML IV ONE (18:05)
--- NOTE | 2022-03-15 18:41 | NUR ---
V/S 113/44, 71, 24, 98.0F, 100%, FLACC0. REPORTED TO
--- NOTE | 2022-03-15 19:21 | NUR ---
GAVE BEDSIDE REPORT TO PARI MUTUEL CLERK NURSE OTF FOR CONTINUITY OF CARE. IVF RESUMED AT THIS TIME. G-TUBE RESIDUAL 240CC. V/S STABLE. ALL NEEDS MET THROUGHOUT SHIFT.
--- NOTE | 2022-03-15 19:30 | NUR ---
RECEIVED REPORT FROM DAY SHIFT RN FOR CONTINUITY OF CARE. PT IS APHASIC. PT IS ON TRACH TO VENT SATING 100%. PT HAS GTUBE BUT ON HOLD SINCE PT HAS BEEN HAVING HIGH RESIDUALS. PT IS ON D5 / NS RUNNING AT 70 CC/HR. FC IN PLACE DRAINING TO GRAVITY. PT NOT IN ANY RESPIRATORY DISTRESS. WILL CONTINUE TO MONITOR THE PT. Addendum: 03/16/22 at 0218 by Armando Montana RN D5 NS 75 CC/HR.
--- NOTE | 2022-03-15 21:50 | NUR ---
SCHEDULE MEDICATION GIVEN. NO ADVERSE REACTION NOTED. WILL CONTINUE TO MONITOR THE PT.
--- NOTE | 2022-03-15 23:01 | NUR ---
CHECKED PT RESIDUALS AN HAD 20 CC/HR. FEEDING STARTED.
[2022-03-16] VITALS: BP 98/35
--- NOTE | 2022-03-16 00:56 | NUR ---
FEEDING PUMP HAS BEEN GIVING PROBLEMS AND GIVING ERROR MESSAGES. TRIED MANY WAYS TO FIX THE PROBLEM WITH NO SUCCESS. CALLED HOUSE ADMIN FOR NEW FEEDING PUMP AND SAID THERE IS NO MORE FEEDINGS PUMPS. PT IS RESTING IN BED COMFORTABLY NOT IN ANY DISTRESS. WILL CONTINUE TO MONITOR THE PT.
[2022-03-16] MEDS: NYSTATIN CRE 100 MU/GM 15 GM TUBE TP SCH ×2 (01:00→13:00)
--- NOTE | 2022-03-16 02:15 | NUR ---
FEEDING PUMP WAS FIXED. FEEDING RUNNING PER MD ORDER.
[2022-03-16] MEDS: DEXT 5% /NACL 0.9% 1,000 ML IV SCH ×2 (03:10→07:29)
[2022-03-16 04:00] VITALS: BP 113/51
--- NOTE | 2022-03-16 04:04 | NUR ---
CHECKED PT RESIDUALS AND ITS AT 200CC. FEEDING PUT ON HOLD PER PARAMETERS.
[2022-03-16] MEDS: MEROPENEM 1,000 MG in NACL 0.9% 100 ML IV SCH ×3 (04:31→20:31)
[2022-03-16] MEDS: FUROSEMIDE 20 MG/2 ML VIAL IVP SCH ×3 (04:31→20:31)
--- NOTE | 2022-03-16 04:31 | NUR ---
PT BLOOD PRESSURE IMPROVE TO 113/51. SCHEDULE LASIX AND MERREM GIVEN. NO ADVERSE REACTION NOTED. WILL CONTINUE TO MONITOR THE PT.
--- NOTE | 2022-03-16 07:25 | NUR ---
ENDORSED PT TO DAY SHIFT RN FOR CONTINUITY OF CARE. PT IS STABLE.
--- NOTE | 2022-03-16 07:25 | NUR ---
RECEIVED REPORT FROM NIGHTSHIFT NURSE VANESSA FOR CONTINUITY OF CARE. PT IN STABLE CONDITION. NO SIGNS OF PAIN OR DISTRESS NOTED AT THIS TIME.
[2022-03-16 08:00] VITALS: BP 148/54
[2022-03-16] MEDS: PANTOPRAZOLE 40 MG INJ VIAL IVP SCH (09:27)
[2022-03-16] MEDS: MIDODRINE 5 MG TAB PO SCH ×3 (09:27→17:59)
--- NOTE | 2022-03-16 09:37 | NUR ---
PT RESIDUAL 45ML. ADMINISTERED MIDODRINE PER SCHEDULE IN 20CC OF WATER, FLUSHED WITH 30CC OF WATER. RESUMED G-TUBE FEEDING AT PRIOR RATE OF 55ML/HR.
[2022-03-16 12:00] VITALS: BP 111/58
[2022-03-16] MEDS: THERAHONEY GEL 42.5 GM TP SCH (13:00)
--- NOTE | 2022-03-16 13:00 | NUR ---
c Addendum: 03/16/22 at 2008 by Tavo Doherty RN RESIDUAL 20ML. ADMINISTERED SCHEDULED MEDS, RESUMED FEEDING.
[2022-03-16 16:00] VITALS: BP 120/55
--- NOTE | 2022-03-16 17:00 | NUR ---
WHILE CLEANING PT, FIGUEROA CATHETER WAS FOUND COMPLETELY OUT OF URETHRA, WITH URINE ON ABSORBENT PADS. CATHETER TIP INTACT, BALLOON WAS STILL INFLATED, NO BLOOD NOTED ON CATHETER OR PERINEAL AREA. NOTIFIED DR. CORADO FOR FURTHER INSTRUCTION.
--- NOTE | 2022-03-16 17:10 | NUR ---
REPLACED FIGUEROA CATHETER PER DR. CORADO'S ORDER. CLEAN URINE FLASH VISUALIZED, BALLOON INFLATED AND ANCHORED AT BASE OF BLADDER. FIGUEROA TO GRAVITY; PALE YELLOW, CLEAR URINE DRAINING INTO BAG.
--- NOTE | 2022-03-16 17:30 | NUR ---
RESIDUAL 90ML. ADMINISTERED SCHEDULED MEDS, RESUMED FEEDING.
--- NOTE | 2022-03-16 19:14 | NUR ---
ENDORSED PT TO NIGHTSWIFT NURSE HARRY FOR CONTINUITY OF CARE. PT IN STABLE CONDITION.
[2022-03-17] MEDS: NYSTATIN CRE 100 MU/GM 15 GM TUBE TP SCH ×2 (00:10→13:00)
[2022-03-17] MEDS: DEXT 5% /NACL 0.9% 1,000 ML IV SCH (04:28)
[2022-03-17] MEDS: MEROPENEM 1,000 MG in NACL 0.9% 100 ML IV SCH ×3 (04:28→17:11)
[2022-03-17] MEDS: FUROSEMIDE 20 MG/2 ML VIAL IVP SCH ×3 (04:28→21:00)
--- NOTE | 2022-03-17 05:25 | NUR ---
rn notes patient remains on the ventilator, no sob noted. VSS all shift. Cleaned and repositioned. Replaced a new FC. Sent a stool sample to lab for c diff. pending results.
--- NOTE | 2022-03-17 07:03 | NUR ---
RECEIVED REPORT FROM NIGHTSILFT NURSE HARRY FOR CONTINUITY OF CARE. PT IN STABLE CONDITION.
[2022-03-17 07:07] VITALS: BP 110/75
--- NOTE | 2022-03-17 07:23 | NUR ---
NOTIFIED DR. CORADO ABOUT PT'S FIGUEROA CATHETER SLIPPING OUT DURING NIGHTSHIFT WITH BALLOON STILL INFLATED. AWAITING CALLBACK FOR FURTHER INSTRUCTION SHOULD IT OCCUR ONCE AGAIN. Addendum: 03/17/22 at 0739 by Tavo Doherty RN PER DR. CORADO, IF FIGUEROA CATHETER SLIPS OUT AGAIN, PLACE EXTERNAL CATHETER.
[2022-03-17 08:00] VITALS: BP 114/54
[2022-03-17] MEDS: MIDODRINE 5 MG TAB PO SCH ×3 (10:01→17:11)
[2022-03-17] MEDS: PANTOPRAZOLE 40 MG INJ VIAL IVP SCH (10:01)
--- NOTE | 2022-03-17 10:18 | NUR ---
RESIDUAL 775ML. STOPPED FEEDING, NOTIFIED DR. CORADO.
[2022-03-17 10:22] LABS: BASOPHILS % (AUTO) 0.4 % (0.0-2.0); EOSINOPHILS # (AUTO) 0.1 K/uL (0-0.4); EOSINOPHILS % (AUTO) 1.7 % (0.0-4.0); HEMATOCRIT 26.9 % (36-48); HEMOGLOBIN 8.8 g/dL (12.0-16.0); LYMPHOCYTES # (AUTO) 0.6 K/uL (2.5-16.5); MEAN CORPUSCULAR HEMOGLOBIN 30 pg (27-31); MEAN CORPUSCULAR HGB CONC 33 g/dL (33-37); MEAN CORPUSCULAR VOLUME 91.9 fL (80-94); MONOCYTES # (AUTO) 0.2 K/uL (0.8-1.0); MONOCYTES % (AUTO) 2.8 % (1.7-9.3); NEUTROPHILS # (AUTO) 7.7 K/uL (1.8-7.7); NEUTROPHILS % (AUTO) 88.1 % (42.2-75.2); PLATELET COUNT (AUTO) 153 K/uL (140-450); RED BLOOD CELL COUNT(AUTO) 2.93 MIL/uL (4.20-5.40); RED CELL DISTRIBUTION WIDTH 19.1 % (11.6-13.7); WHITE BLOOD COUNT (AUTO) 8.7 K/uL (4.8-10.8)
[2022-03-17 10:37] LABS: ALBUMIN 1.9 g/dL (3.4-5.0); ANION GAP 9.5 (8-16); CREATININE 0.4 mg/dL (0.6-1.3); MAGNESIUM 1.9 mg/dL (1.8-2.4); PHOSPHORUS 2.4 mg/dL (2.5-4.9); TOTAL BILIRUBIN 0.2 mg/dL (0.0-1.0)
[2022-03-17 10:45] LABS: POTASSIUM 2.5 mmol/L (3.5-5.1)
[2022-03-17] MEDS ORDERED: KCL 20 MEQ/WATER INJ PREMIX 200 ML IV PRN (10:50)
[2022-03-17] MEDS: POTASSIUM CHLORIDE 20% 40 MEQ/15 ML UDC GT PRN (10:53)
--- NOTE | 2022-03-17 10:53 | NUR ---
NOTIFIED DR. PONCE ABOUT CRITICAL POTASSIUM OF 2.5. PER DR. PONCE, ADMINISTERED 40MEQ OF KCL ELIXIR VIA G-TUBE AND ENTERED NEW ORDER FOR 40MEQ K-RIDER.
--- NOTE | 2022-03-17 11:40 | NUR ---
PERFORMED BED BATH AND LINEN CHANGE. PERFORMED WOUND CARE AND DRESSING CHANGE. FIGUEROA CATHETER WAS OUTSIDE OF PT'S URETHRA, BALLOON STILL INFLATED, CATHETER TIP INTACT. NO BLOOD NOTED ON CATHETER OR URETHRA. PLACED PT ON PUREWICK PER DR. CORADO'S ORDER.
[2022-03-17 12:00] VITALS: BP 111/58
--- NOTE | 2022-03-17 12:00 | NUR ---
PT RESIDUAL WAS 210ML. CONTINUED HOLD ON TUBE FEEDING.
[2022-03-17] MEDS: THERAHONEY GEL 42.5 GM TP SCH (13:00)
--- NOTE | 2022-03-17 14:16 | NUR ---
RESIDUAL 120ML. CONTINUED HOLD ON TUBE FEEDING.
[2022-03-17 16:00] VITALS: BP 113/59
--- NOTE | 2022-03-17 16:00 | NUR ---
RESIDUAL 40ML. RESUMED TUBE FEEDING.
--- NOTE | 2022-03-17 18:40 | NUR ---
PT HAD LARGE WATERY BM. PERFORMED BED BATH AND LINEN CHANGE. PERFORMED WOUND CARE.
--- NOTE | 2022-03-17 19:43 | NUR ---
ENDORSED PT TO NIGHTSCAFT NURSE ALEXIS FOR CONTINUITY OF CARE. PT IN STABLE CONDITION.
[2022-03-17 20:00] VITALS: BP 100/50
--- NOTE | 2022-03-17 20:00 | NUR ---
HAND-OFF REPORT RECEIVED @1915 FROM A.M NURSE FOR CONTINUITY OF CARE. RECEIVED OBTUNDED, TRACH TO VENT. FI02 35% RATE 18 PEEP VOL 400. GLUCERNA 1.2 @ 55 ML/HR. WATER FLUSH 350 ML/Q4 VIA [place] PUMP TO GASTRIC TUBE. PUREWICK TO LOW WALL SUCTION.22 GA GENET SL. FEED ADVISER SR. HOB UP 45 DEGREES. BILAT HEEL CUSHIONS ON. PTTING EDEMA LEFT HAND +3 RT HAND +2. BILAT FEET +2. FOOTDROP. RESIDUALS 775 ML.S. FEEDING OFF 0900 TO 1600. NOW INFUSING. CDIFF SPECIMEN SENT, PENDING. (ORDERED PAUSE PROCESSING BY THADDEUS BERG) CONTINUE MONITOR AND ASSIST.
--- NOTE | 2022-03-17 20:22 | NUR ---
CARDIAC WIRES CHANGED
[2022-03-18] VITALS: BP 95/47
[2022-03-18] MEDS: NYSTATIN CRE 100 MU/GM 15 GM TUBE TP SCH ×2 (01:00→13:19)
[2022-03-18] MEDS: MEROPENEM 1,000 MG in NACL 0.9% 100 ML IV SCH ×2 (04:49→13:18)
[2022-03-18] MEDS: FUROSEMIDE 20 MG/2 ML VIAL IVP SCH ×2 (04:50→13:19)
[2022-03-18 04:55] VITALS: BP 117/63
[2022-03-18 06:42] LABS: BASOPHILS % (AUTO) 0.4 % (0.0-2.0); EOSINOPHILS # (AUTO) 0.2 K/uL (0-0.4); EOSINOPHILS % (AUTO) 2.6 % (0.0-4.0); HEMOGLOBIN 7.8 g/dL (12.0-16.0); LYMPHOCYTES # (AUTO) 0.9 K/uL (2.5-16.5); LYMPHOCYTES % (AUTO) 14.9 % (20.5-51.1); MEAN CORPUSCULAR HEMOGLOBIN 30 pg (27-31); MEAN CORPUSCULAR HGB CONC 33 g/dL (33-37); MONOCYTES # (AUTO) 0.2 K/uL (0.8-1.0); MONOCYTES % (AUTO) 3.4 % (1.7-9.3); NEUTROPHILS # (AUTO) 4.7 K/uL (1.8-7.7); NEUTROPHILS % (AUTO) 78.7 % (42.2-75.2); PLATELET COUNT (AUTO) 150 K/uL (140-450); RED BLOOD CELL COUNT(AUTO) 2.58 MIL/uL (4.20-5.40); RED CELL DISTRIBUTION WIDTH 18.9 % (11.6-13.7)
[2022-03-18 07:37] LABS: ANION GAP 10.1 (8-16); CARBON DIOXIDE 37.3 mmol/L (21-32); CREATININE 0.4 mg/dL (0.6-1.3); MAGNESIUM 2.1 mg/dL (1.8-2.4); PHOSPHORUS 2.3 mg/dL (2.5-4.9); POTASSIUM 3.4 mmol/L (3.5-5.1); TOTAL BILIRUBIN 0.2 mg/dL (0.0-1.0)
[2022-03-18 08:00] VITALS: BP 107/59
[2022-03-18] MEDS: MIDODRINE 5 MG TAB PO SCH ×2 (09:58→13:19)
[2022-03-18] MEDS: PANTOPRAZOLE 40 MG INJ VIAL IVP SCH (09:58)
[2022-03-18 12:00] VITALS: BP 126/64
[2022-03-18] MEDS: POTASSIUM CHLORIDE 20% 40 MEQ/15 ML UDC GT PRN (12:14)
[2022-03-18] MEDS: THERAHONEY GEL 42.5 GM TP SCH (13:19)
[2022-03-18] MEDS ORDERED: MERO1VIA15 IV (13:56)
[2022-03-18] MEDS ORDERED: NYST15CR10 TP (13:56)
[2022-03-18] MEDS ORDERED: KCL 20 MEQ/WATER INJ PREMIX 100 ML IV SCH (15:40)
[2022-03-18] MEDS ORDERED: KCL 20 MEQ/WATER INJ PREMIX 100 ML IV ONE (15:40)
--- NOTE | 2022-03-18 16:38 | NUR ---
DC PLANNING: PATIENT HAS A DC ORDER TO RETURN TO [facility] CAN GO TO 126B . ARRANGED TRANSPORT WITH [facility] REPA[facility]ER TIME 5:30 PM NOTIFIED HERBERT HERNANDEZ. CM TO FOLLOW
--- NOTE | 2022-03-18 17:08 | NUR ---
REPORT CALLED TO [phone] SPOKE WITH OTILIO HERNANDEZ PT GOING TO BED 126B REPORT GIVEN
[2022-03-18 17:38] VITALS: BP 126/64
--- NOTE | 2022-03-18 18:02 | NUR ---
LEFT VIA AMBULANCE NO DISTRESS NOTED
== END 2022-03-18 18:00 | DRG 720 ==
LOC: MED 15:52 → MTU 18:32 → MIC 03-12 21:02 → MTU 03-15 16:20
PROVIDERS: ADMIT Family Medicine; ATTEND Family Medicine
PROC: 5A1955Z Respiratory Ventilation, Greater than 96 Consecutive Hours (ICD-10-PCS; principal; 2022-03-10)
PROC: 30233N1 Transfusion of Nonautologous Red Blood Cells into Peripheral Vein, Percutaneous Approach (ICD-10-PCS; 2022-03-13)
PROC: 05HY33Z Insertion of Infusion Device into Upper Vein, Percutaneous Approach (ICD-10-PCS; 2022-03-13)
PROC: B54MZZA Ultrasonography of Right Upper Extremity Veins, Guidance (ICD-10-PCS; 2022-03-13)
DX: A41.9 Sepsis, unspecified organism (principal); N17.0 Acute kidney failure with tubular necrosis; J69.0 Pneumonitis due to inhalation of food and vomit; R65.21 Severe sepsis with septic shock; G93.1 Anoxic brain damage, not elsewhere classified; I50.33 Acute on chronic diastolic (congestive) heart failure; K21.9 Gastro-esophageal reflux disease without esophagitis; N39.0 Urinary tract infection, site not specified; G80.9 Cerebral palsy, unspecified; E87.0 Hyperosmolality and hypernatremia; E87.5 Hyperkalemia; E87.6 Hypokalemia; D53.9 Nutritional anemia, unspecified; Z20.822 Contact with and (suspected) exposure to COVID-19; I11.0 Hypertensive heart disease with heart failure; J96.10 Chronic respiratory failure, unspecified whether with hypoxia or hypercapnia; Z88.1 Allergy status to other antibiotic agents; Z88.8 Allergy status to other drugs, medicaments and biological substances; Z93.0 Tracheostomy status; Z93.1 Gastrostomy status; Z79.4 Long term (current) use of insulin; Z79.899 Other long term (current) drug therapy; Z88.0 Allergy status to penicillin; Z99.11 Dependence on respirator [ventilator] status
CPT/HCPCS: 36415; 71045; 80048; 80053; 81001; 82272; 82948; 83605; 83735; 83880; 84100; 84484; 85025; 86886; 86900; 86901; 86920; 87040; 87070; 87081; 87086; 94003; 96365; 99285; C9113; J1940; J1956; J2185; J3480; J3490; J7060; P9016; Q0092